=== PATIENT | female | born 1960 | race African-American/Black ===

== ENCOUNTER 2017-12-11 15:44 | Emergency (ER) | payer MEDICAID, OTHER ==
[~2017-12-11] VITALS: Ht 167.6 cm; Wt 133.8 kg
[~2017-12-11 15:44] MED LIST: ALBUTEROL2.5 MG/3 M HHN; ASPIRIN325 MG PO; ATORVASTATIN CA20 MG PO; BENICAR20 MG PO; KOMBIGLYZE XR1 EACH PO; VICODIN 5-5001 EACH PO
[2017-12-11 15:53] VITALS: BP 159/99
[2017-12-11] MEDS ORDERED: DIOVAN80 MG ORAL ×2 (15:59→16:18)
[2017-12-11] MEDS ORDERED: KOMBIGLYZE XR1 EACH PO ×2 (15:59→16:18)
[2017-12-11] MEDS ORDERED: AMLODIPINE BESYL5 MG ORAL ×2 (15:59→16:18)
[2017-12-11] MEDS ORDERED: MONTELUKAST SOD10 MG ORAL (15:59)
[2017-12-11] MEDS ORDERED: CYCLOBENZAPRINE10 MG ORAL (15:59)
[2017-12-11] MEDS ORDERED: TYLENOL325 MG ORAL (16:18)
[2017-12-11] MEDS ORDERED: ASPIRIN EC325 MG ORAL (16:18)
--- NOTE | 2017-12-11 16:18 | Emergency Room Report ---
History of Present Illness General Chief Complaint: General Complaint Present Illness HPI 57 yo female patient presents to ER requesting medication refill. Patient reports hx of HTN and DM. Reports needs refill of medication for DM and HTN. Reports no longer seeing current primary care provider. Denies fever, chest pain, SOB. Denies acute symptoms currently. Reports hx of arthritis; requesting medication for pain. Allergies: Coded Allergies: PENICILLINS (Verified Allergy, Itching, 10/18/12) Patient History Past Medical History: see triage record Reviewed Nursing Documentation: PMH: Agreed, PSxH: Agreed Nursing Documentation-PMH Hx Hypertension: Yes Hx Asthma: Yes Hx Diabetes: Yes Review of Systems All Other Systems: negative except mentioned in HPI Physical Exam Vital Signs Date Time Temp Pulse Resp B/P (MAP) Pulse Ox O2 Delivery O2 Flow Rate FiO2 12/11/17 15:53 98.0 99 18 159/99 97 Room Air 98.1 Sp02 EP Interpretation: reviewed, normal General Appearance: well appearing, no apparent distress, alert, GCS 15, non- toxic Head: normocephalic, atraumatic Eyes: bilateral eye normal inspection, bilateral eye PERRL ENT: hearing grossly normal, normal pharynx, no angioedema, normal voice, uvula midline, moist mucus membranes Neck: full range of motion Respiratory: lungs clear, normal breath sounds, no rhonchi, no respiratory distress, no accessory muscle use, no wheezing, speaking full sentences Cardiovascular #1: regular rate, rhythm, no edema Gastrointestinal: non tender, soft, no mass, non-distended, no guarding, no rebound Genitourinary: no CVA tenderness Musculoskeletal: back normal, digits/nails normal, gait/station normal, normal range of motion, non-tender Neurologic: alert, oriented x3, responsive, motor strength/tone normal, sensory intact Psychiatric: mood/affect normal Skin: no rash Lymphatic: no adenopathy Medical Decision Making PA Attestation Dr. Bourgeois is my supervising Physician whom patient management has been discussed with. Diagnostic Impression: Primary Impression: Encounter for medication refill Additional Impression: Hx of chronic arthritis ER Course Pt. presents to the ED requesting medication refill. Multiple differentials considered. Vital signs: are WNL, pt. is afebrile ORDERS: none required at this time, the diagnosis is clinical ER COURSE: Will provide patient with 2 weeks of prescriptions. Informed patient ER cannot refill prescriptions again in the future. Need to followup with primary care provider for further medication refills and management of disease. Patient reports understanding and agreement to treatment plan. Patient reports will schedule an appointment with new physician and establish care after discharge from hospital. States will followup with primary care provider in less than 2 weeks. DISCHARGE: At this time pt is stable for d/c to home. Patient is resting comfortably, in no acute distress, nontoxic appearing, talking without difficulty. Patient to take medications as instructed Will provide with patient care instructions and any necessary prescriptions. Care plan and follow-up instructions provided. Patient instructed to follow-up with primary care provider in 3 - 5 days. Tylenol for arthritis pain, followup with PCP for treatment and referral as needed. Patient questions asked and answered. Patient reports understanding and agreement to treatment plan. ER precautions given. Patient instructed to return to ER immediately for any new or worsening of symptoms including but not limited to increasing SOB, persistent fever. Last Vital Signs Date Time Temp Pulse Resp B/P (MAP) Pulse Ox O2 Delivery O2 Flow Rate FiO2 12/11/17 15:53 98.0 99 18 159/99 97 Room Air 98.1 Disposition: HOME, SELF-CARE Condition: Stable Scripts Acetaminophen (Tylenol) 325 Mg Tablet 325 MG ORAL Q6H Y for Prn Pain/Headache/Temp > 101, #30 TAB 0 Refills Prov: Rusty Montez 12/11/17 Valsartan (DIOVAN) 80 Mg Tab 80 MG ORAL DAILY for 14 Days, #14 TAB Prov: Rusty Montez 12/11/17 Aspirin* (ASPIRIN EC*) 325 Mg Tablet.dr 325 MG ORAL DAILY for 14 Days, #14 TAB Prov: Rusty Montez 12/11/17 Amlodipine Besylate* (AMLODIPINE BESYLATE*) 5 Mg Tablet 5 MG ORAL DAILY for 14 Days, #14 TAB Prov: Rusty Montez 12/11/17 Saxagliptin Hcl/Metformin Hcl (KOMBIGLYZE XR 2.5-1,000 MG TAB) 1 Each Tbmp.24hr 1 EACH PO DAILY for 14 Days, #14 TAB Prov: Rusty Montez 12/11/17 Patient Instructions: Arthritis, [id number], Diabetes and Exercise, Hypertension, [id number] Additional Instructions: Followup with primary care provider in 3 -5 days. ER will not able to refill prescriptions again, need to followup with primary care provider for medication refill so that they can monitor you and medication effectiveness. Take medications as directed. Patient questions asked and answered. ER precautions given, patient instructed to return to ER immediately for any new or worsening of symptoms, including but not limited to chest pain, SOB, abdominal pain, fever. Rusty Montez Dec 11, 2017 16:18
[2017-12-11 16:30] VITALS: BP 161/95
== END 2017-12-11 16:30 | disposition home or self-care (01) ==
LOC: EMR 16:17
DX: Z76.0 Encounter for issue of repeat prescription (principal); I10 Essential (primary) hypertension; J45.909 Unspecified asthma, uncomplicated; E11.9 Type 2 diabetes mellitus without complications; Z88.0 Allergy status to penicillin
CPT/HCPCS: 99284

== ENCOUNTER 2018-01-17 16:26 | Emergency (ER) | payer MEDICAID, OTHER ==
[~2018-01-17] VITALS: Ht 167.6 cm; Wt 86.6 kg
[~2018-01-17 16:26] MED LIST changes: +AMLODIPINE BESYL5 MG ORAL; +ASPIRIN EC325 MG ORAL; +CYCLOBENZAPRINE10 MG ORAL; +DIOVAN80 MG ORAL; +MONTELUKAST SOD10 MG ORAL; +TYLENOL325 MG ORAL
--- NOTE | 2018-01-17 16:50 | Emergency Room Report ---
History of Present Illness General Chief Complaint: Medication Refill Present Illness HPI 57-year-old female patient presents ER requesting medication refill for diabetes and hypertension medications. Patient denies acute symptoms in the ER currently. Patient is presenting seen in the ER requesting medication refill. Patient reports she has an appointment with her doctor on 2017. Patient reports she'll follow up at that time for further medication refill but needs medication at this time. Patient Denies fever, chest pain, shortness of breath, abdominal pain, nausea, vomiting, diarrhea, headache, vision changes. Reports she took her blood pressure medication today. Allergies: Coded Allergies: PENICILLINS (Verified Allergy, Itching, 10/18/12) Patient History Past Medical History: see triage record Reviewed Nursing Documentation: PMH: Agreed; PSxH: Agreed Nursing Documentation-PMH Hx Hypertension: Yes Hx Asthma: Yes Hx Diabetes: Yes Review of Systems All Other Systems: negative except mentioned in HPI Physical Exam Vital Signs Date Time Temp Pulse Resp B/P (MAP) Pulse Ox O2 Delivery O2 Flow Rate FiO2 01/17/18 16:38 98.3 77 16 162/99 98 Room Air 98.2 Sp02 EP Interpretation: reviewed, normal General Appearance: well appearing, no apparent distress, alert, GCS 15, non- toxic Head: normocephalic, atraumatic Eyes: bilateral eye normal inspection, bilateral eye PERRL Neck: full range of motion Respiratory: lungs clear, normal breath sounds, no rhonchi, no respiratory distress, no accessory muscle use, no wheezing, speaking full sentences Cardiovascular #1: regular rate, rhythm, no edema Musculoskeletal: back normal, digits/nails normal, gait/station normal, normal range of motion, non-tender Neurologic: alert, oriented x3, responsive, motor strength/tone normal, sensory intact Psychiatric: mood/affect normal Medical Decision Making PA Attestation Dr. Perla is my supervising Physician whom patient management has been discussed with. Diagnostic Impression: Primary Impression: Encounter for medication refill Additional Impression: Elevated blood pressure reading ER Course Pt. presents to the ED requesting prescription refill. Multiple differentials were considered. Vital signs: are WNL, pt. is afebrile. BP slightly elevated, consistent with remotes visits, patient denies acute complaints of chest pain, shortness, vision changes in ER. Patient does not require acute intervention at ER. Instructed to follow-up with primary care provider for further evaluation and treatment and discuss need for change of dosage of medication. patient reports understanding treatment plan. ORDERS: PE benign. denies acute complaints in ER today. Informed patient would provide refill of medication. Patient started to follow up at scheduled appointment. Discuss medication and management of chronic diseases at that time. Supplied patient with 30 day supply of medication to last her until her appointment with her primary care provider. Informed patient ER cannot provide refills in the future; followup, management and prescription of long-term medications must be performed by primary care provider. DISCHARGE: Rx provided for Aspirin Rx provided for Tylenol Rx provided for Valsartan Rx provided for Saxagliptin/Metformin Rx provided for Amlodipine At this time pt is stable for d/c to home. Patient is resting comfortably, in no acute distress, nontoxic appearing, talking without difficulty, smiling. Patient to take medications as instructed Will provide with patient care instructions and any necessary prescriptions. Care plan and follow-up instructions provided. Patient instructed to follow-up with primary care provider at scheduled appointment. Patient questions asked and answered. Patient reports understanding and agreement to treatment plan. ER precautions given. Patient instructed to return to ER immediately for any new or worsening of symptoms including but not limited to increasing SOB, persistent fever. Last Vital Signs Date Time Temp Pulse Resp B/P (MAP) Pulse Ox O2 Delivery O2 Flow Rate FiO2 01/17/18 16:38 98.3 77 16 162/99 98 Room Air 98.2 Disposition: HOME, SELF-CARE Condition: Stable Scripts Acetaminophen* (ACETAMINOPHEN 325MG TABLET*) 325 Mg Tablet 325 MG ORAL Q6H PRN for For Pain, #30 TAB Prov: Rusty MontezAJosemanuel 01/17/18 Amlodipine Besylate* (AMLODIPINE BESYLATE*) 5 Mg Tablet 5 MG ORAL DAILY, #30 TAB Prov: Rusty Montez.A. 01/17/18 Aspirin* (ASPIRIN*) 325 Mg Tablet 325 MG ORAL DAILY, #30 TAB Prov: Rusty Montez.A. 01/17/18 Saxagliptin Hcl/Metformin Hcl (KOMBIGLYZE XR 2.5-1,000 MG TAB) 1 Each Tbmp.24hr 1 EACH PO DAILY, #30 TAB Prov: Rusty MontezA. 01/17/18 Valsartan (Diovan) 80 Mg Tablet 1 TAB ORAL DAILY, #30 TAB Prov: Rusty Montez 01/17/18 Patient Instructions: Medicine Refill at the Emergency Department Additional Instructions: Followup with primary care provider in 3 -5 days. Take medications as directed. Patient questions asked and answered. ER precautions given, patient instructed to return to ER immediately for any new or worsening of symptoms. Rusty Montez Jan 17, 2018 16:50
[2018-01-17 16:54] VITALS: BP 162/99
[2018-01-17] MEDS ORDERED: ACETAMINOPHEN325 M1 ORAL (17:08)
[2018-01-17] MEDS ORDERED: KOMBIGLYZE XR1 EACH PO (17:08)
[2018-01-17] MEDS ORDERED: ASPIRIN325 MG ORAL (17:08)
[2018-01-17] MEDS ORDERED: AMLODIPINE BESYL5 MG ORAL (17:08)
[2018-01-17] MEDS ORDERED: DIOVAN HCT 80MG1 TAB ORAL (17:08)
[2018-01-17 17:16] VITALS: BP 162/99
== END 2018-01-17 17:00 | disposition home or self-care (01) ==
LOC: EMR 16:55
DX: Z76.0 Encounter for issue of repeat prescription (principal); I10 Essential (primary) hypertension; J45.909 Unspecified asthma, uncomplicated; E11.9 Type 2 diabetes mellitus without complications; Z88.0 Allergy status to penicillin
CPT/HCPCS: 99284

== ENCOUNTER → 2018-05-12 | Emergency (ER) | payer OTHER, MEDICAID ==
[~2018-05-12] VITALS: Ht 165.1 cm; Wt 88.5 kg
[~2018-05-12] MED LIST changes: +ACETAMINOPHEN325 M1 ORAL; +ASPIRIN325 MG ORAL; +DIOVAN HCT 80MG1 TAB ORAL; +HYDROXYZINE HCL10 M1 PO; +PERMETHRIN60 GM TOPIC
[2018-05-12 11:23] VITALS: BP 169/109
--- NOTE | 2018-05-15 08:14 | Emergency Room Report ---
History of Present Illness General Chief Complaint: Lower Extremity Injury Source: Patient Present Illness HPI Patient's a 58-year-old female presented after increased itchy rash. Patient had the rash predominantly to her belt line area. Patient denied any recent trauma. She had prior history of ankle injury which had been painful for approximately 3 months. She denies any numbness or weakness weakness to her extremities. She had associated contact with similar symptoms and itchiness.. Allergies: Coded Allergies: PENICILLINS (Verified Allergy, Unknown, Itching, 05/12/18) Patient History Past Medical History: see triage record Now: No Reviewed Nursing Documentation: PMH: Agreed; PSxH: Agreed Nursing Documentation-PMH Hx Hypertension: Yes Hx Asthma: Yes Hx Diabetes: Yes Review of Systems All Other Systems: negative except mentioned in HPI Physical Exam Vital Signs Date Time Temp Pulse Resp B/P (MAP) Pulse Ox O2 Delivery O2 Flow Rate FiO2 05/12/18 11:23 97.5 111 15 169/109 98 Room Air 97.5 General Appearance: well appearing, no apparent distress, alert, GCS 15 Head: normocephalic, atraumatic ENT: hearing grossly normal, normal voice Neck: full range of motion, supple Respiratory: no respiratory distress, speaking full sentences Cardiovascular #1: normal inspection, normal peripheral pulses, regular rate, rhythm Gastrointestinal: normal inspection, non tender Musculoskeletal: decreased range of mation Neurologic: normal inspection, alert, oriented x3, responsive, normal gait Psychiatric: mood/affect normal Skin: other - Mildly excoriated rash\ Medical Decision Making Diagnostic Impression: Primary Impression: Rash Additional Impression: Chronic pain ER Course Patient presented for skin rash. Differential diagnosis included was not limited to Natarajan-Dustin syndrome, urticaria, erythema multiforme, contact dermatitis. Patient's benign exam and does not appear to require any further imaging or laboratory testing at this time. The patient given prescription for Elimite cream for possible scabies. The patient's ankle pain appears to be chronic and does not appear to require imaging at this time. Patient is advised follow-up with primary care physician for orthopedic referral. Patient is advised to use NSAIDs and to keep her leg elevated as much as possible for pain. Last Vital Signs Date Time Temp Pulse Resp B/P (MAP) Pulse Ox O2 Delivery O2 Flow Rate FiO2 05/12/18 12:53 97.5 15 159/96 98 Room Air 97.5 05/12/18 11:23 111 Status: improved Disposition: HOME, SELF-CARE Condition: Stable Scripts Hydroxyzine Hcl (HYDROXYZINE HCL) 10 Mg Tablet 10 MG PO Q6HR, #20 TAB Prov: Beny Gross MD 05/12/18 Permethrin* (ELIMITE*) 60 Gm Cream..g. 1 APPLIC TOPIC ONCE, #60 GM 0 Refills Apply cream from head to toe; leave on for 8-14 hours before washing off with water; may reapply in 1 week if live mites appear. Prov: Beny Gross MD 05/12/18 Referrals: NON PHYSICIAN (PCP) Patient Instructions: Rash, Chronic Pain Beny Gross MD May 15, 2018 08:14
== END | disposition home or self-care (01) ==
LOC: EMR 12:40
DX: R21 Rash and other nonspecific skin eruption (principal); G89.29 Other chronic pain; E11.9 Type 2 diabetes mellitus without complications; J45.909 Unspecified asthma, uncomplicated; I10 Essential (primary) hypertension; Z88.0 Allergy status to penicillin
CPT/HCPCS: 99283

== ENCOUNTER 2018-11-13 11:17 | Emergency (ER) | payer OTHER, MEDICAID ==
[~2018-11-13] VITALS: Ht 167.6 cm; Wt 86.6 kg
--- NOTE | 2018-11-13 11:25 | NUR ---
ED Nurse Note: AMBULATED IN TO ER DUE TO HIGH BS X3 DAYS. BS AT HOME WAS 466. GLIPIZIDE 10MG DAILY.
[2018-11-13 11:30] VITALS: BP 132/89
[2018-11-13 12:06] LABS: APPEARANCE,URINE CLEAR; BILIRUBIN, URINE NEGATIVE (NEGATIVE); COLOR,URINE PALE YELLOW; GLUCOSE, URINE (UA) 4+ (NEGATIVE); KETONES,URINE NEGATIVE (NEGATIVE); LEUKOCYTE ESTERASE ,URINE NEGATIVE (NEGATIVE); NITRITE,URINE NEGATIVE (NEGATIVE); PH,URINE 5 (4.5-8.0); PROTEIN,URINE NEGATIVE (NEGATIVE); UROBILINOGEN,URINE NORMAL MG/DL (0.0-1.0)
[2018-11-13 12:12] LABS: BASOPHILS % (AUTO) 2.3 % (0.0-2.0); EOSINOPHILS % (AUTO) 3.7 % (0.0-3.0); HEMATOCRIT 39.9 % (37.0-47.0); HEMOGLOBIN 13.5 G/DL (12.0-16.0); LYMPHOCYTES % (AUTO) 24.8 % (20.0-45.0); MEAN CORPUSCULAR VOLUME 96 FL (80-99); MONOCYTES % (AUTO) 10.9 % (1.0-10.0); NEUTROPHILS % (AUTO) 58.3 % (45.0-75.0); PLATELET COUNT 281 K/UL (150-450); RED BLOOD COUNT 4.15 M/UL (4.20-5.40); RED CELL DISTRIBUTION WIDTH 12.2 % (11.6-14.8); WHITE BLOOD COUNT 5.6 K/UL (4.8-10.8)
[2018-11-13 12:29] LABS: ALANINE AMINOTRANSFERASE 18 U/L (12-78); ALBUMIN 3.8 G/DL (3.4-5.0); ALBUMIN/GLOBULIN RATIO 0.9 (1.0-2.7); ALKALINE PHOSPHATASE 111 U/L (46-116); ANION GAP 11 mmol/L (5-15); ASPARTATE AMINO TRANSFERASE 22 U/L (15-37); BILIRUBIN,TOTAL 0.4 MG/DL (0.2-1.0); BLOOD UREA NITROGEN 21 mg/dL (7-18); CALCIUM 9.4 MG/DL (8.5-10.1); CARBON DIOXIDE 24 MMOL/L (21-32); CHLORIDE 98 MMOL/L (98-107); CREATININE 1.3 MG/DL (0.55-1.30); POTASSIUM 4.8 MMOL/L (3.5-5.1); SODIUM 133 MMOL/L (136-145)
[2018-11-13] MEDS ORDERED: Insulin Human Regular 100units/ml 3ml IV ONE (12:45)
[2018-11-13 13:38] VITALS: BP 147/90
--- NOTE | 2018-11-13 13:38 | NUR ---
ER Nurse Note: A/OX4. PT IS CLEARED BY DR.K. CONNELL INSTRUCTION AND PRESCRIPTIONS GIVEN, PT VERBALIZED UNDERSTSANDING. IV/ID WRISTBAND REMOVED. ALL BELONGINGS TAKEN BY PT. DENIES ANY PAIN AT THIS TIME. PT AMBULATED OUT OF ER WITH STEADY GAIT.
--- NOTE | 2018-11-14 07:02 | Emergency Room Report ---
History of Present Illness General Chief Complaint: General Complaint Source: Patient Present Illness HPI 58-year-old female presents ED for evaluation. Patient states that her blood sugars have been high for the last 3 days. Accu-Chek critically high in the ER. States she is a diabetic and takes metformin and glipizide. States she's been compliant with her medications. Denies nausea or vomiting. Denies fevers or chills. Denies any abdominal pain. States she feels fine otherwise. No other aggravating relieving factors. Denies any other associated symptoms Allergies: Coded Allergies: PENICILLINS (Verified Allergy, Unknown, Itching, 05/12/18) Patient History Past Medical History: DM, HTN, asthma Past Surgical History: none Pertinent Family History: none Social History: Denies: smoking, alcohol use, drug use Last Menstrual Period: menopause Now: No Immunizations: UTD Reviewed Nursing Documentation: PMH: Agreed; PSxH: Agreed Nursing Documentation-PMH Past Medical History: No History, Except For Hx Hypertension: Yes Hx Asthma: Yes Hx Diabetes: Yes Review of Systems All Other Systems: negative except mentioned in HPI Physical Exam Vital Signs Date Time Temp Pulse Resp B/P (MAP) Pulse Ox O2 Delivery O2 Flow Rate FiO2 11/13/18 11:26 97.9 77 16 132/89 94 Room Air Sp02 EP Interpretation: reviewed, normal General Appearance: no apparent distress, alert, GCS 15, non-toxic Head: normocephalic, atraumatic Eyes: bilateral eye normal inspection, bilateral eye PERRL ENT: hearing grossly normal, normal pharynx, no angioedema, normal voice Neck: full range of motion, supple/symm/no masses Respiratory: chest non-tender, lungs clear, normal breath sounds, speaking full sentences Cardiovascular #1: regular rate, rhythm, no edema Cardiovascular #2: 2+ carotid (R), 2+ carotid (L), 2+ radial (R), 2+ radial (L) , 2+ dorsalis pedis (R), 2+ dorsalis pedis (L) Gastrointestinal: normal bowel sounds, non tender, soft, non-distended, no guarding, no rebound Rectal: deferred Genitourinary: normal inspection, no CVA tenderness Musculoskeletal: back normal, gait/station normal, normal range of motion, non- tender Neurologic: alert, oriented x3, responsive, motor strength/tone normal, sensory intact, speech normal Psychiatric: judgement/insight normal, memory normal, mood/affect normal, no suicidal/homicidal ideation Reflexes: 3+ bicep (R), 3+ bicep (L), 3+ tricep (R), 3+ tricep (L), 3+ knee (R) , 3+ knee (L) Skin: normal color, no rash, warm/dry, well hydrated Lymphatic: no adenopathy Medical Decision Making Diagnostic Impression: Primary Impression: Hyperglycemia ER Course Hospital Course 58-year-old female presenting to ED with elevated BS. Differential diagnoses include: ETOH/drug ingestion, sepsis, DKA Clinical course Patient placed on stretcher. On rn cardiac cath. After initial history and physical I ordered labs, IV fluids Labs-glucose 579, no anion gap, bicarbonate normal, electrolytes ok. no leukocytosis. acetone negative Discussed findings with patient. Patient given IV fluids and insulin. On reassessment Accu-Chek improved. Reassurance given to patient. Patient later admits that she has been eating a lot of sweets recently which is likely spiking her sugars. I discussed with the patient's of importance with glycemic control even if she is taking her medications. Safe for discharge close outpatient follow-up. States she has a PMD i. I feel this is a highly complex case requiring extensive working including EKG/Rhythm strip, Xray/CT/US, Blood/urine lab work, repeat exams while in ED, and administration of strong opiates/narcotics for pain control, admission to hospital or close patient follow up. diagnosis - hyperglycemia Stable and discharged to home. Followup with PMD. Return to ED if symptoms recur or worsen Labs Test 11/13/18 11:45 White Blood Count 5.6 K/UL (4.8-10.8) Red Blood Count 4.15 M/UL (4.20-5.40) Hemoglobin 13.5 G/DL (12.0-16.0) Hematocrit 39.9 % (37.0-47.0) Mean Corpuscular Volume 96 FL (80-99) Mean Corpuscular Hemoglobin 32.6 PG (27.0-31.0) Mean Corpuscular Hemoglobin Concent 33.9 G/DL (32.0-36.0) Red Cell Distribution Width 12.2 % (11.6-14.8) Platelet Count 281 K/UL (150-450) Mean Platelet Volume 8.5 FL (6.5-10.1) Neutrophils (%) (Auto) 58.3 % (45.0-75.0) Lymphocytes (%) (Auto) 24.8 % (20.0-45.0) Monocytes (%) (Auto) 10.9 % (1.0-10.0) Eosinophils (%) (Auto) 3.7 % (0.0-3.0) Basophils (%) (Auto) 2.3 % (0.0-2.0) Urine Color Pale yellow Urine Appearance Clear Urine pH 5 (4.5-8.0) Urine Specific Purdy 1.010 (1.005-1.035) Urine Protein Negative (NEGATIVE) Urine Glucose (UA) 4+ (NEGATIVE) Urine Ketones Negative (NEGATIVE) Urine Blood Negative (NEGATIVE) Urine Nitrite Negative (NEGATIVE) Urine Bilirubin Negative (NEGATIVE) Urine Urobilinogen Normal MG/DL (0.0-1.0) Urine Leukocyte Esterase Negative (NEGATIVE) Sodium Level 133 MMOL/L (136-145) Potassium Level 4.8 MMOL/L (3.5-5.1) Chloride Level 98 MMOL/L (98-107) Carbon Dioxide Level 24 MMOL/L (21-32) Anion Gap 11 mmol/L (5-15) Blood Urea Nitrogen 21 mg/dL (7-18) Creatinine 1.3 MG/DL (0.55-1.30) Estimat Glomerular Filtration Rate 51.0 mL/min (>60) Glucose Level 579 MG/DL (74-106) Calcium Level 9.4 MG/DL (8.5-10.1) Magnesium Level 1.6 MG/DL (1.8-2.4) Total Bilirubin 0.4 MG/DL (0.2-1.0) Aspartate Amino Transf (AST/SGOT) 22 U/L (15-37) Alanine Aminotransferase (ALT/SGPT) 18 U/L (12-78) Alkaline Phosphatase 111 U/L (46-116) Total Protein 8.1 G/DL (6.4-8.2) Albumin 3.8 G/DL (3.4-5.0) Globulin 4.3 g/dL Albumin/Globulin Ratio 0.9 (1.0-2.7) Acetone Level Negative (NEGATIVE) Last Vital Signs Date Time Temp Pulse Resp B/P (MAP) Pulse Ox O2 Delivery O2 Flow Rate FiO2 11/13/18 13:38 97.4 76 16 147/90 96 Room Air Status: improved Disposition: HOME, SELF-CARE Condition: Stable Referrals: [facility],REFERRING NON PHYSICIAN (PCP) Patient Instructions: Hyperglycemia, [id number] Hay Haq MD Nov 14, 2018 07:02
== END 2018-11-13 13:39 | disposition home or self-care (01) ==
LOC: EMR 11:51
DX: E11.65 Type 2 diabetes mellitus with hyperglycemia (principal); I10 Essential (primary) hypertension; J45.909 Unspecified asthma, uncomplicated
CPT/HCPCS: 36415; 80053; 81003; 82009; 82962; 83735; 85025; 96361; 96374; 99284; J1815

== ENCOUNTER 2020-04-06 16:12 | Inpatient (IN) | payer OTHER, MEDICAID ==
[~2020-04-06] VITALS: Ht 167.6 cm; Wt 86.2 kg
[2020-04-06 16:45] VITALS: BP 139/91
[2020-04-06] MEDS ORDERED: Mylanta II UD 30ml ORAL ONE (17:00)
[2020-04-06] MEDS ORDERED: Lidocaine 2% Visc 15ml soln ORAL ONE (17:00)
[2020-04-06] MEDS ORDERED: ATORVASTATIN CA40 MG ORAL (17:18)
[2020-04-06] MEDS ORDERED: AMLODIPINE BESYL5 MG ORAL (17:20)
[2020-04-06] MEDS ORDERED: HUMALOG KW200 UNIT/1 SQ (17:20)
[2020-04-06 17:27] LABS: EOSINOPHILS % (AUTO) 0.2 % (0.0-3.0); HEMATOCRIT 40.3 % (37.0-47.0); HEMOGLOBIN 13.2 G/DL (12.0-16.0); LYMPHOCYTES % (AUTO) 20.2 % (20.0-45.0); MEAN CORPUSCULAR VOLUME 100 FL (80-99); MONOCYTES % (AUTO) 7.2 % (1.0-10.0); NEUTROPHILS % (AUTO) 70.3 % (45.0-75.0); PLATELET COUNT 261 K/UL (150-450); RED BLOOD COUNT 4.03 M/UL (4.20-5.40); RED CELL DISTRIBUTION WIDTH 11.9 % (11.6-14.8); WHITE BLOOD COUNT 5.1 K/UL (4.8-10.8)
[2020-04-06 17:29] LABS: APPEARANCE,URINE CLEAR; BILIRUBIN, URINE NEGATIVE (NEGATIVE); COLOR,URINE PALE YELLOW; GLUCOSE, URINE (UA) 4+ (NEGATIVE); KETONES,URINE 3+ (NEGATIVE); LEUKOCYTE ESTERASE ,URINE NEGATIVE (NEGATIVE); NITRITE,URINE NEGATIVE (NEGATIVE); PH,URINE 5 (4.5-8.0); PROTEIN,URINE 1+ (NEGATIVE); UROBILINOGEN,URINE NORMAL MG/DL (0.0-1.0)
[2020-04-06 17:40] LABS: ANION GAP 17 mmol/L (5-15); BLOOD UREA NITROGEN 29 mg/dL (7-18); CALCIUM 9.1 MG/DL (8.5-10.1); CARBON DIOXIDE 20 MMOL/L (21-32); CHLORIDE 90 MMOL/L (98-107); CREATININE 2.1 MG/DL (0.55-1.30); POTASSIUM 4.9 MMOL/L (3.5-5.1); SODIUM 127 MMOL/L (136-145)
[2020-04-06 17:43] LABS: ALANINE AMINOTRANSFERASE 17 U/L (12-78); ALBUMIN 4.2 G/DL (3.4-5.0); ALBUMIN/GLOBULIN RATIO 1.1 (1.0-2.7); ALKALINE PHOSPHATASE 128 U/L (46-116); ASPARTATE AMINO TRANSFERASE 13 U/L (15-37); BILIRUBIN,TOTAL 0.6 MG/DL (0.2-1.0)
[2020-04-06 18:31] VITALS: BP 142/87
[2020-04-06] MEDS ORDERED: Insulin Human Regular 100units/ml 3ml SUBQ ONE (19:30)
[2020-04-06 20:30] VITALS: BP 142/87
[2020-04-06] MEDS ORDERED: Albuterol/Ipratropium 3ml neb HHN PRN (21:15)
[2020-04-06] MEDS ORDERED: Nitroglycerin Subl 0.4mg tab SL PRN (21:15)
[2020-04-06] MEDS ORDERED: Miralax 17gm pkt ORAL PRN (21:15)
--- NOTE | 2020-04-06 22:22 | Emergency Room Report ---
History of Present Illness General Chief Complaint: Chest Pain Source: Patient Present Illness HPI This patient states that she feels "terrible" overall. Complains of chest pain. She states she is very weak. She has had cough intermittently. She is fatigued. She denies fever or chills. She denies nausea or vomiting. She denies abdominal pain. She denies dysuria or hematuria. She has no other complaints. 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 Patient History Past Medical History: see triage record, DM, HTN, asthma Social History: Denies: smoking, alcohol use, drug use Reviewed Nursing Documentation: PMH: Agreed; PSxH: Agreed Nursing Documentation-PMH Hx Hypertension: Yes Hx Asthma: Yes Hx Diabetes: Yes Review of Systems All Other Systems: negative except mentioned in HPI Physical Exam Vital Signs Date Time Temp Pulse Resp B/P (MAP) Pulse Ox O2 Delivery O2 Flow Rate FiO2 04/06/20 16:38 98.4 87 18 139/91 (107) 100 Room Air Sp02 EP Interpretation: reviewed, normal General Appearance: no apparent distress, alert, GCS 15, non-toxic Head: normocephalic, atraumatic Eyes: bilateral eye normal inspection, bilateral eye PERRL ENT: hearing grossly normal, normal pharynx, no angioedema, normal voice Neck: full range of motion, supple/symm/no masses Respiratory: chest non-tender, lungs clear, normal breath sounds, no respiratory distress, no retraction, no accessory muscle use, speaking full sentences Cardiovascular #1: regular rate, rhythm, no edema Gastrointestinal: normal bowel sounds, non tender, soft, non-distended, no guarding, no rebound Rectal: deferred Musculoskeletal: back normal, normal range of motion, gait/station normal, non- tender Neurologic: alert, motor strength/tone normal, oriented x3, sensory intact, responsive, speech normal Psychiatric: judgement/insight normal, memory normal, mood/affect normal, no suicidal/homicidal ideation Skin: no rash, normal color Medical Decision Making Diagnostic Impression: Primary Impression: Hyperosmolar syndrome Additional Impressions: Hyperglycemia Uncontrolled diabetes mellitus DANAE (acute kidney injury) ER Course This patient was found to have a blood sugar over 800. I suspect this is related to medication noncompliance and lack of sophistication. The patient states she takes 5 units of insulin. She does not know what type of insulin. She remained stable in the emergency department. She is given aggressive IV fluid resuscitation and insulin subcutaneous. She had improvement in her blood sugar into the mid 400s. She is admitted for further monitoring, education and control of her diabetes. This patient is critically ill. This patient required complex medical decision- making, aggressive intervention, extensive laboratory workup and monitoring. Critical care time: 40 minutes. Laboratory Tests Test 04/06/20 17:00 White Blood Count 5.1 K/UL (4.8-10.8) Red Blood Count 4.03 M/UL (4.20-5.40) L Hemoglobin 13.2 G/DL (12.0-16.0) Hematocrit 40.3 % (37.0-47.0) Mean Corpuscular Volume 100 FL (80-99) H Mean Corpuscular Hemoglobin 32.7 PG (27.0-31.0) H Mean Corpuscular Hemoglobin Concent 32.7 G/DL (32.0-36.0) Red Cell Distribution Width 11.9 % (11.6-14.8) Platelet Count 261 K/UL (150-450) Mean Platelet Volume 9.9 FL (6.5-10.1) Neutrophils (%) (Auto) 70.3 % (45.0-75.0) Lymphocytes (%) (Auto) 20.2 % (20.0-45.0) Monocytes (%) (Auto) 7.2 % (1.0-10.0) Eosinophils (%) (Auto) 0.2 % (0.0-3.0) Basophils (%) (Auto) 2.0 % (0.0-2.0) Urine Color Pale yellow Urine Appearance Clear Urine pH 5 (4.5-8.0) Urine Specific [place] 1.010 (1.005-1.035) Urine Protein 1+ (NEGATIVE) H Urine Glucose (UA) 4+ (NEGATIVE) H Urine Ketones 3+ (NEGATIVE) H Urine Blood Negative (NEGATIVE) Urine Nitrite Negative (NEGATIVE) Urine Bilirubin Negative (NEGATIVE) Urine Urobilinogen Normal MG/DL (0.0-1.0) Urine Leukocyte Esterase Negative (NEGATIVE) Urine RBC 0-2 /HPF (0 - 2) Urine WBC 0-2 /HPF (0 - 2) Urine Squamous Epithelial Cells Few /LPF (NONE/OCC) Urine Bacteria Few /HPF (NONE) Sodium Level 127 MMOL/L (136-145) L Potassium Level 4.9 MMOL/L (3.5-5.1) Chloride Level 90 MMOL/L (98-107) L Carbon Dioxide Level 20 MMOL/L (21-32) L Anion Gap 17 mmol/L (5-15) H Blood Urea Nitrogen 29 mg/dL (7-18) H Creatinine 2.1 MG/DL (0.55-1.30) H Estimated Glomerular Filtration Rate 29.2 mL/min (>60) Glucose Level 860 MG/DL (74-106) *H Calcium Level 9.1 MG/DL (8.5-10.1) Total Bilirubin 0.6 MG/DL (0.2-1.0) Aspartate Amino Transferase (AST) 13 U/L (15-37) L Alanine Aminotransferase (ALT) 17 U/L (12-78) Alkaline Phosphatase 128 U/L (46-116) H Troponin I 0.000 ng/mL (0.000-0.056) Total Protein 8.0 G/DL (6.4-8.2) Albumin 4.2 G/DL (3.4-5.0) Globulin 3.8 g/dL Albumin/Globulin Ratio 1.1 (1.0-2.7) Urine Opiates Screen Negative (NEGATIVE) Urine Barbiturates Screen Negative (NEGATIVE) Phencyclidine (PCP) Screen Negative (NEGATIVE) Urine Amphetamines Screen Negative (NEGATIVE) Urine Benzodiazepines Screen Negative (NEGATIVE) Urine Cocaine Screen Negative (NEGATIVE) Urine Marijuana (THC) Screen Positive (NEGATIVE) H Acetone Level Positive-small (NEGATIVE) EKG Diagnostic Results Rate: normal Rhythm: NSR ST Segments: no acute changes Rhythm Strip Diag. Results EP Interpretation: yes Rate: 80's Rhythm: NSR, no PVC's, no ectopy Chest X-Ray Diagnostic Results Chest X-Ray Diagnostic Results : Chest X-Ray Ordered: Yes # of Views/Limited/Complete: 1 View Indication: Chest Pain EP Interpretation: Yes Interpretation: no consolidation, no effusion, no pneumothorax, no acute cardiopulmonary disease Impression: No acute disease Electronically Signed by: Jaqui Moyer DO Last Vital Signs Date Time Temp Pulse Resp B/P (MAP) Pulse Ox O2 Delivery O2 Flow Rate FiO2 04/06/20 18:31 98.3 86 17 142/87 98 Room Air Disposition: ADMITTED INPATIENT Condition: Serious Referrals: NON PHYSICIAN (PCP) Jaqui Moyer DO Apr 06, 2020 22:22
[2020-04-07] VITALS: BP 113/62
[2020-04-07 04:00] VITALS: BP 132/68
[2020-04-07 05:12] LABS: BASOPHILS % (AUTO) 2.4 % (0.0-2.0); EOSINOPHILS % (AUTO) 1.3 % (0.0-3.0); HEMATOCRIT 35.8 % (37.0-47.0); HEMOGLOBIN 11.9 G/DL (12.0-16.0); LYMPHOCYTES % (AUTO) 47.5 % (20.0-45.0); MEAN CORPUSCULAR VOLUME 99 FL (80-99); NEUTROPHILS % (AUTO) 36.8 % (45.0-75.0); PLATELET COUNT 199 K/UL (150-450); RED BLOOD COUNT 3.61 M/UL (4.20-5.40); RED CELL DISTRIBUTION WIDTH 11.4 % (11.6-14.8); WHITE BLOOD COUNT 4.4 K/UL (4.8-10.8)
[2020-04-07 05:26] LABS: ALANINE AMINOTRANSFERASE 11 U/L (12-78); ALBUMIN 3.2 G/DL (3.4-5.0); ALBUMIN/GLOBULIN RATIO 1.1 (1.0-2.7); ALKALINE PHOSPHATASE 95 U/L (46-116); ANION GAP 13 mmol/L (5-15); ASPARTATE AMINO TRANSFERASE 12 U/L (15-37); BILIRUBIN,TOTAL 0.2 MG/DL (0.2-1.0); BLOOD UREA NITROGEN 20 mg/dL (7-18); CARBON DIOXIDE 21 MMOL/L (21-32); CHLORIDE 104 MMOL/L (98-107); CHOLESTEROL 292 MG/DL (< 200); CREATININE 1.5 MG/DL (0.55-1.30); HDL CHOLESTEROL 39 MG/DL (40-60); POTASSIUM 3.8 MMOL/L (3.5-5.1); SODIUM 138 MMOL/L (136-145); TRIGLYCERIDES 555 MG/DL (30-150)
[2020-04-07] MEDS ORDERED: NovoLOG Insulin Flexpen SUBQ SCH (06:30)
[2020-04-07 08:20] VITALS: BP 137/84
--- NOTE | 2020-04-07 09:15 | Consultation ---
DATE OF CONSULTATION: 04/07/2020 ENDOCRINOLOGY CONSULTATION CONSULTING PHYSICIAN: Jevon Sidhu MD. REFERRING PHYSICIAN: Peterson Hendricks MD. REASON FOR CONSULTATION: Diabetes management. HISTORY OF PRESENT ILLNESS: The patient is a 59-year-old female with past medical history of diabetes, who presented to the hospital with a chief complaint of feeling terrible overall. She had chest pain, very weak, intermittent cough, and fatigue. No fever or chills. No abdominal pain. No other complaint. Upon presentation, the patient was noted to have a glucose of 860 with a creatinine of 2.10, started on IV fluids and insulin, and Endocrinology was consulted. PAST MEDICAL HISTORY: 1. Diabetes. 2. Hypertension. 3. Asthma. SOCIAL HISTORY: No smoking, alcohol, or drug use. REVIEW OF SYSTEMS: As per HPI. MEDICATIONS: Reviewed and reconciled. FAMILY HISTORY: Noncontributory. LABORATORY DATA: K 3.8, chloride 104, bicarb 21, BUN 20, creatinine 1.5, and glucose of 363. A1c is pending. TSH is 1.0. HDL 39, LDL 142. Alkaline phosphatase 128. Urine is positive for marijuana. CBC with WBC of 4.4, hemoglobin 11.9, hematocrit 35.8, platelets of 199,000. Urine shows 3+ ketones and 3+ sugar. PHYSICAL EXAMINATION: VITAL SIGNS: Blood pressure 132/68, heart rate 85, temperature 97.7, respiratory rate 18. HEENT: Pupils are equal and reactive to light. Sclerae are anicteric. NECK: No JVD. No thyromegaly. LUNGS: Clear. HEART: Regular rate and rhythm. ABDOMEN: Positive bowel sounds. EXTREMITIES: No clubbing, cyanosis, or edema. DIAGNOSES: 1. Diabetes, out of control. 2. DANAE. 3. Obesity. PLAN: 1. Start Levemir 30 units daily. 2. Start NovoLog 10 units before each meal. 3. Continue NovoLog sliding scale before meals and at bedtime. 4. Follow hemoglobin A1c. 5. Hypoglycemia protocol has been ordered. 6. Further insulin dose adjustment according to blood glucose values. Thank you, Dr. Hendricks, for the courtesy of this consultation. Jevon Sidhu M.D. DR: ASHUTOSH JOB#: [id number] CC: BOBBY
[2020-04-07] MEDS: Heparin 5000 units/ml inj SUBQ SCH ×2 (09:19→21:26)
[2020-04-07] MEDS: Levemir Flexpen SUBQ SCH (09:19)
[2020-04-07] MEDS: NovoLOG Insulin Flexpen SUBQ SCH ×5 (11:31→21:00)
[2020-04-07 12:00] VITALS: BP 128/75
--- NOTE | 2020-04-07 12:07 | Consultation ---
Consult Note Consult Note I am asked to evaluate the patient at the request of Dr. franklin for renal failure. Patient initially referred to our emergency room for chest pain and feeling very weak. This patient states that she feels "terrible" overall. Complains of chest pain. She states she is very weak. She has had cough intermittently. She is fatigued. She denies fever or chills. She denies nausea or vomiting. She denies abdominal pain. She denies dysuria or hematuria. She has no other complaints. 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. Vital Signs Date Time Temp Pulse Resp B/P (MAP) Pulse Ox O2 Delivery O2 Flow Rate FiO2 04/06/20 16:38 98.4 87 18 139/91 (107) 100 Room Air Sp02 EP Interpretation: reviewed, normal General Appearance: no apparent distress, alert, Head: normocephalic, atraumatic Eyes: bilateral eye normal inspection, bilateral eye PERRL ENT: hearing grossly normal, normal pharynx, no angioedema, normal voice Neck: full range of motion, supple/symm/no masses Respiratory: chest non-tender, lungs clear, normal breath sounds, no respiratory distress, no retraction, no accessory muscle use, speaking full sentences Cardiovascular #1: regular rate, rhythm, no edema Gastrointestinal: normal bowel sounds, non tender, soft, non-distended, no guarding, no rebound Rectal: deferred Musculoskeletal: back normal, normal range of motion, gait/station normal, non- tender Neurologic: alert, motor strength/tone normal, oriented x3, Skin: no rash, normal color Assessment/Plan Acute kidney injury. Presents with creatinine of 2.1 Underlying dehydration due to hyperosmolar syndrome. Presents with blood sugar of 860 Severe hyperglycemia. Uncontrolled diabetes mellitus. Proteinuria Underlying anemia High lipid panel Hypertension Hydrate Blood sugar control with insulin Keep the blood pressure in check Statins and fish oil Aspirin Protonix and Colace Continue per consultants Iron panel ferritin B12 and folate levels Per orders I spent an additional 36 minutes on review of medical records including prior hospital records,consult notes, progress notes, procedures ,imaging labs, hemodynamics, and other clinical documentation. Andrea Spear MD Apr 07, 2020 12:07
--- NOTE | 2020-04-07 13:19 | Consultation ---
History of Present Illness General Date patient seen: Apr 07, 2020 Chief Complaint: Chest Pain Present Illness HPI 59 year old female with hx of HTN, Diabetes, morbid obesity, presented to ER with CC of Epigastric pain and generalized weakness. She stopped eating because of epigastric pain and stopped taking her insulin as well. Her blood sugar in ER was around 800. She is admitted to telemetry for further treatment. Allergies: Coded Allergies: PENICILLINS (Verified Allergy, Unknown, Itching, 05/12/18) Medication History Scheduled Amlodipine Besylate* (Amlodipine Besylate*), 5 MG ORAL DAILY, (Reported) Atorvastatin Calcium* (Atorvastatin Calcium*), 40 MG ORAL BEDTIME, (Reported) Miscellaneous Medications Insulin Lispro (Humalog Kwikpen), Unknown Dose SQ, (Reported) Discontinued Medications Acetaminophen (Tylenol), 325 MG ORAL Q6H PRN for Prn Pain/Headache/Temp > 101 Discontinued Reason: Pt stopped taking med Acetaminophen* (Acetaminophen 325MG Tablet*), 325 MG ORAL Q6H PRN for For Pain Discontinued Reason: Pt stopped taking med Albuterol Sulfate* (Albuterol Sulfate Hhn*), 2.5 MG HHN Q6H, (Reported) Discontinued Reason: Pt stopped taking med Amlodipine Besylate* (Amlodipine Besylate*), 5 MG ORAL DAILY, (Reported) Discontinued Reason: Pt stopped taking med Amlodipine Besylate* (Amlodipine Besylate*), 5 MG ORAL DAILY Discontinued Reason: Pt stopped taking med Amlodipine Besylate* (Amlodipine Besylate*), 5 MG ORAL DAILY Discontinued Reason: Pt stopped taking med Aspirin* (Aspirin*), 325 MG PO DAILY, (Reported) Discontinued Reason: Pt stopped taking med Aspirin* (Aspirin Ec*), 325 MG ORAL DAILY Discontinued Reason: Pt stopped taking med Aspirin* (Aspirin*), 325 MG ORAL DAILY Discontinued Reason: Pt stopped taking med Atorvastatin Calcium* (Atorvastatin Calcium*), 10 MG PO QHS, (Reported) Discontinued Reason: Pt stopped taking med Cyclobenzaprine Hcl* (Flexeril*), 10 MG ORAL THREE TIMES A DAY, (Reported) Discontinued Reason: Pt stopped taking med Hydrocodone/Acetaminophen 5-500 (Vicodin 5-500), 1 TAB PO Q8H Discontinued Reason: Pt stopped taking med Hydroxyzine Hcl (Hydroxyzine Hcl), 10 MG PO Q6HR Discontinued Reason: Pt stopped taking med Montelukast Sodium* (Montelukast Sodium*), 10 MG ORAL DAILY, (Reported) Discontinued Reason: Pt stopped taking med Olmesartan Medoxomil (Benicar), 20 MG PO DAILY, (Reported) Discontinued Reason: Pt stopped taking med Permethrin* (Elimite*), 1 APPLIC TOPIC ONCE Discontinued Reason: Pt stopped taking med Saxagliptin Hcl/Metformin Hcl (Kombiglyze Xr 2.5-1,000 Mg Tab), 2 EACH PO DAILY, (Reported) Discontinued Reason: Pt stopped taking med Saxagliptin Hcl/Metformin Hcl (Kombiglyze Xr 2.5-1,000 Mg Tab), 1 EACH PO DAILY, (Reported) Discontinued Reason: Pt stopped taking med Saxagliptin Hcl/Metformin Hcl (Kombiglyze Xr 2.5-1,000 Mg Tab), 1 EACH PO DAILY Discontinued Reason: Pt stopped taking med Saxagliptin Hcl/Metformin Hcl (Kombiglyze Xr 2.5-1,000 Mg Tab), 1 EACH PO DAILY Discontinued Reason: Pt stopped taking med Valsartan (Diovan), 80 MG ORAL DAILY, (Reported) Discontinued Reason: Pt stopped taking med Valsartan (Diovan), 80 MG ORAL DAILY Discontinued Reason: Pt stopped taking med Valsartan (Diovan), 1 TAB ORAL DAILY Discontinued Reason: Pt stopped taking med Patient History Healthcare decision maker Resuscitation status Advanced Directive on File Past Medical/Surgical History Past Medical/Surgical History: (1) History of diabetes mellitus (2) Morbid obesity (3) History of hypertension (4) Poor compliance Review of Systems Constitutional: Reports: malaise, weakness Gastrointestinal: Reports: abdominal pain All Other Systems: negative except mentioned in HPI Physical Exam General Appearance: overweight Lines, tubes and drains: peripheral HEENT: normocephalic, atraumatic Neck: non-tender, normal alignment Respiratory/Chest: chest wall non-tender, lungs clear Cardiovascular/Chest: normal peripheral pulses, normal rate Abdomen: normal bowel sounds, non tender Genitourinary/Rectal: normal genital exam Extremities: normal range of motion, non-tender Skin Exam: normal pigmentation 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 Last 24 Hour Vital Signs Date Time Temp Pulse Resp B/P (MAP) Pulse Ox O2 Delivery O2 Flow Rate FiO2 04/07/20 12:00 97.9 68 20 128/75 (92) 100 04/07/20 11:52 73 04/07/20 09:18 81 137/84 04/07/20 08:20 97.4 81 20 137/84 (101) 97 04/07/20 08:20 97.4 81 137/84 (101) 04/07/20 07:51 Room Air 04/07/20 07:34 77 04/07/20 04:00 70 04/07/20 04:00 97.7 85 19 132/68 (89) 99 04/07/20 00:00 80 04/07/20 00:00 97.2 91 19 113/62 (79) 99 04/06/20 22:34 Room Air 04/06/20 22:14 98.0 90 18 142/82 98 Room Air 04/06/20 20:30 98.3 86 17 142/87 98 Room Air 04/06/20 18:31 98.3 86 17 142/87 98 Room Air 04/06/20 16:45 98.4 87 18 139/91 100 Room Air 04/06/20 16:45 87 18 Room Air 04/06/20 16:38 98.4 87 18 139/91 (107) 100 Room Air Laboratory Tests Test 04/06/20 17:00 04/06/20 22:16 04/07/20 04:49 04/07/20 11:28 White Blood Count 5.1 K/UL (4.8-10.8) 4.4 K/UL (4.8-10.8) L Red Blood Count 4.03 M/UL (4.20-5.40) L 3.61 M/UL (4.20-5.40) L Hemoglobin 13.2 G/DL (12.0-16.0) 11.9 G/DL (12.0-16.0) L Hematocrit 40.3 % (37.0-47.0) 35.8 % (37.0-47.0) L Mean Corpuscular Volume 100 FL (80-99) H 99 FL (80-99) Mean Corpuscular Hemoglobin 32.7 PG (27.0-31.0) H 32.8 PG (27.0-31.0) H Mean Corpuscular Hemoglobin Concent 32.7 G/DL (32.0-36.0) 33.1 G/DL (32.0-36.0) Red Cell Distribution Width 11.9 % (11.6-14.8) 11.4 % (11.6-14.8) L Platelet Count 261 K/UL (150-450) 199 K/UL (150-450) Mean Platelet Volume 9.9 FL (6.5-10.1) 9.5 FL (6.5-10.1) Neutrophils (%) (Auto) 70.3 % (45.0-75.0) 36.8 % (45.0-75.0) L Lymphocytes (%) (Auto) 20.2 % (20.0-45.0) 47.5 % (20.0-45.0) H Monocytes (%) (Auto) 7.2 % (1.0-10.0) 12.0 % (1.0-10.0) H Eosinophils (%) (Auto) 0.2 % (0.0-3.0) 1.3 % (0.0-3.0) Basophils (%) (Auto) 2.0 % (0.0-2.0) 2.4 % (0.0-2.0) H Urine Color Pale yellow Urine Appearance Clear Urine pH 5 (4.5-8.0) Urine Specific [place] 1.010 (1.005-1.035) Urine Protein 1+ (NEGATIVE) H Urine Glucose (UA) 4+ (NEGATIVE) H Urine Ketones 3+ (NEGATIVE) H Urine Blood Negative (NEGATIVE) Urine Nitrite Negative (NEGATIVE) Urine Bilirubin Negative (NEGATIVE) Urine Urobilinogen Normal MG/DL (0.0-1.0) Urine Leukocyte Esterase Negative (NEGATIVE) Urine RBC 0-2 /HPF (0 - 2) Urine WBC 0-2 /HPF (0 - 2) Urine Squamous Epithelial Cells Few /LPF (NONE/OCC) Urine Bacteria Few /HPF (NONE) Sodium Level 127 MMOL/L (136-145) L 138 MMOL/L (136-145) # Potassium Level 4.9 MMOL/L (3.5-5.1) 3.8 MMOL/L (3.5-5.1) Chloride Level 90 MMOL/L (98-107) L 104 MMOL/L (98-107) Carbon Dioxide Level 20 MMOL/L (21-32) L 21 MMOL/L (21-32) Anion Gap 17 mmol/L (5-15) H 13 mmol/L (5-15) Blood Urea Nitrogen 29 mg/dL (7-18) H 20 mg/dL (7-18) H Creatinine 2.1 MG/DL (0.55-1.30) H 1.5 MG/DL (0.55-1.30) H Estimat Glomerular Filtration Rate 29.2 mL/min (>60) 43.0 mL/min (>60) Glucose Level 860 MG/DL (74-106) *H 363 MG/DL (74-106) #H Calcium Level 9.1 MG/DL (8.5-10.1) 8.0 MG/DL (8.5-10.1) L Total Bilirubin 0.6 MG/DL (0.2-1.0) 0.2 MG/DL (0.2-1.0) Aspartate Amino Transf (AST/SGOT) 13 U/L (15-37) L 12 U/L (15-37) L Alanine Aminotransferase (ALT/SGPT) 17 U/L (12-78) 11 U/L (12-78) L Alkaline Phosphatase 128 U/L (46-116) H 95 U/L (46-116) Troponin I 0.000 ng/mL (0.000-0.056) Total Protein 8.0 G/DL (6.4-8.2) 6.1 G/DL (6.4-8.2) L Albumin 4.2 G/DL (3.4-5.0) 3.2 G/DL (3.4-5.0) L Globulin 3.8 g/dL 2.9 g/dL Albumin/Globulin Ratio 1.1 (1.0-2.7) 1.1 (1.0-2.7) Urine Opiates Screen Negative (NEGATIVE) Urine Barbiturates Screen Negative (NEGATIVE) Phencyclidine (PCP) Screen Negative (NEGATIVE) Urine Amphetamines Screen Negative (NEGATIVE) Urine Benzodiazepines Screen Negative (NEGATIVE) Urine Cocaine Screen Negative (NEGATIVE) Urine Marijuana (THC) Screen Positive (NEGATIVE) H Acetone Level Positive-small (NEGATIVE) POC Whole Blood Glucose Pending 360 MG/DL (74-106) H Hemoglobin A1c 9.8 % (4.3-6.0) H Triglycerides Level 555 MG/DL (30-150) H Cholesterol Level 292 MG/DL (< 200) H LDL Cholesterol 142 mg/dL (<100) H HDL Cholesterol 39 MG/DL (40-60) L Cholesterol/HDL Ratio 7.5 (3.3-4.4) H Thyroid Stimulating Hormone (TSH) 1.055 uiU/mL (0.358-3.740) Height (Feet): 5 Height (Inches): 6.00 Weight (Pounds): 190 Medications Current Medications Medications (Trade) Dose Ordered Sig/Stefan Route PRN Reason Start Time Stop Time Status Last Admin Dose Admin Acetaminophen (Tylenol) 650 mg Q4H PRN ORAL fever 04/06/20 21:15 05/06/20 21:14 Albuterol/ Ipratropium (Albuterol/ Ipratropium) 3 ml Q4H PRN HHN Shortness of Breath 04/06/20 21:15 04/11/20 21:14 Amlodipine Besylate (Norvasc) 5 mg DAILY ORAL 04/07/20 09:00 05/07/20 08:59 04/07/20 09:18 Aspirin (ASA) 81 mg DAILY ORAL 04/08/20 09:00 05/23/20 08:59 Atorvastatin Calcium (Lipitor) 40 mg BEDTIME ORAL 04/07/20 21:00 07/06/20 20:59 Clonidine HCl (Catapres Tab) 0.1 mg Q4H PRN ORAL sbp more than 160 04/06/20 21:15 07/05/20 21:14 Dextrose (Dextrose 50%) 25 ml Q30M PRN IV Hypoglycemia 04/07/20 08:45 07/06/20 08:44 Dextrose (Dextrose 50%) 50 ml Q30M PRN IV Hypoglycemia 04/07/20 08:45 07/06/20 08:44 Docusate Sodium (Colace) 100 mg THREE TIMES A DAY ORAL 04/07/20 13:00 05/07/20 12:59 Fish Oil (Fish Oil) 1,000 mg BID ORAL 04/07/20 18:00 05/07/20 17:59 Heparin Sodium (Porcine) (Heparin 5000 units/ml) 5,000 units EVERY 12 HOURS SUBQ 04/07/20 09:00 8/24/20 08:59 04/07/20 09:19 Insulin Aspart (NovoLOG) BEFORE MEALS AND HS SUBQ 04/07/20 11:30 07/06/20 11:29 04/07/20 11:32 Insulin Aspart (NovoLOG) 10 units NOVOTIAC SUBQ 04/07/20 11:50 07/06/20 11:49 04/07/20 11:31 Insulin Detemir (Levemir) 30 units DAILY SUBQ 04/07/20 09:00 07/06/20 08:59 04/07/20 09:19 Nitroglycerin (Ntg) 0.4 mg Q5M X 3 DOSES PRN SL Prn Chest Pain 04/06/20 21:15 05/06/20 21:14 Ondansetron HCl (Zofran) 4 mg Q6H PRN IVP Nausea & Vomiting 04/06/20 21:15 05/06/20 21:14 Pantoprazole (Protonix) 40 mg EVERY 12 HOURS ORAL 04/07/20 21:00 05/07/20 20:59 Polyethylene Glycol (Miralax) 17 gm HSPRN PRN ORAL Constipation 04/06/20 21:15 05/06/20 21:14 Sodium Chloride 1,000 ml @ 75 mls/hr [id number] IVLG 04/07/20 12:30 05/06/20 12:29 04/07/20 12:46 Temazepam (Restoril) 15 mg HSPRN PRN ORAL Insomnia 04/06/20 21:15 04/13/20 21:14 Assessment/Plan Problem List: (1) Hyperosmolar syndrome ICD Codes: E87.0 - Hyperosmolality and hypernatremia SNOMED: 54056065, 98775629 (2) Uncontrolled diabetes mellitus ICD Codes: E11.65 - Type 2 diabetes mellitus with hyperglycemia SNOMED: 82852591, 011069622 (3) DANAE (acute kidney injury) ICD Codes: N17.9 - Acute kidney failure, unspecified SNOMED: 99164247, 9156884 (4) Epigastric pain ICD Codes: R10.13 - Epigastric pain SNOMED: 50276414 (5) Poor compliance ICD Codes: Z91.19 - Patient's noncompliance with other medical treatment and regimen SNOMED: 2982728 (6) History of hypertension ICD Codes: Z86.79 - Personal history of other diseases of the circulatory system SNOMED: 442163957 (7) Morbid obesity ICD Codes: E66.01 - Morbid (severe) obesity due to excess calories SNOMED: 564476715 (8) History of diabetes mellitus ICD Codes: Z86.39 - Personal history of other endocrine, nutritional and metabolic disease SNOMED: 714124030 Assessment/Plan: iv hydration sliding scale renal follow up symptomatic treatment check electrolytes Peterson Hendricks MD Apr 07, 2020 13:19
[2020-04-07] MEDS: Docusate 100mg cap ORAL SCH ×2 (13:41→17:38)
--- NOTE | 2020-04-07 13:44 | Diagnostic Imaging Report ---
Indication: Chest pain Technique: One view of the chest Comparison: none Findings: Lungs and pleural spaces are clear. Heart size is normal. Impression: No acute process
[2020-04-07 16:20] VITALS: BP 145/87
--- NOTE | 2020-04-07 17:19 | History & Physical ---
History and Physical History & Physicial Derrek Valenzuela MD Apr 07, 2020 17:19
[2020-04-07 20:00] VITALS: BP 147/97
--- NOTE | 2020-04-07 21:15 | History and Physical Report ---
DATE OF ADMISSION: 04/06/2020 CHIEF COMPLAINT: Chest pain and feeling weak. HISTORY OF PRESENT ILLNESS: This is a 59-year-old very delightful female with past medical history significant for coronary artery disease status post stent placement x3, morbid obesity, chronic smoker with 1 pack smoking per day, history of asthma, hypertension, diabetes type 2, who presented to the emergency department complaining about epigastric pain associated with generalized weakness. She stopped eating because of the epigastric pain and stopped taking insulin as well. Her blood glucose level was noted to be around 800 upon arrival to the ER and subsequently, the patient was admitted to the hospital with uncontrolled diabetes. PAST MEDICAL HISTORY/PAST SURGICAL HISTORY: As above. History of coronary artery disease, status post PTCA with stent placement, hypertension, asthma, morbid obesity, dyslipidemia, and diabetes type 2. MEDICATIONS AT HOME: Significant for amlodipine, atorvastatin, aspirin, metformin, and Kombiglyze. The patient is on Diovan. ALLERGIES: Penicillin. SOCIAL HISTORY: The patient currently smokes 1 pack of cigarettes a day. Denies any alcohol or substance abuse. She socially drinks. FAMILY HISTORY: Noncontributory. REVIEW OF SYSTEMS: Denies any dysuria, frequency, hematuria, or hematochezia. Denies any hemoptysis or hematochezia. Complained about the leg edema on and off. Denies any loss of consciousness. Denies any fall or head trauma. PHYSICAL EXAMINATION: VITAL SIGNS: On admission, temperature 98.4, pulse of 87, respirations 18, and blood pressure 139/91. GENERAL: The patient is awake and responsive, in no acute distress. HEAD AND NECK: Pupils are reactive to light. Extraocular movements intact. Neck was supple. No JVD. LUNGS: Good air entry. No wheezing or rales. HEART: S1, S2. Regular rhythm. No murmur or gallops. ABDOMEN: Soft, nondistended, and nontender. No rebound tenderness. No fluid shift. Morbidly obese. EXTREMITIES: No cyanosis, clubbing, or edema. NEUROLOGIC: Cranial nerves II through to XII grossly intact. Motor is 5/5 in all extremities. Gait is intact. RECTAL/: Refused and deferred. PSYCHIATRIC: Mood and affect is intact. LABORATORY DATA: On admission from the emergency room, WBC of 5.1, hemoglobin of 13, hematocrit of 40, and platelets is 261,000. The patient has sodium of 127, potassium 4.9, chloride 90, bicarbonate 20, BUN 29, creatinine 2.1, and glucose level is 860. First troponin is less than 0.0. Alkaline phosphatase was 128. Total protein is 8.0. Triglycerides 555, cholesterol is 292, and LDL is 142. Urine drug screen positive for marijuana, otherwise all negative. Acetone level is positive . Urinalysis is +1 protein, +3 ketones, +4 glucose. Chest x-ray, no acute cardiopulmonary disease. ASSESSMENT: 1. Uncontrolled diabetes. 2. Hyponatremia. 3. Acute kidney injury and chronic renal insufficiency. 4. Hypertension. 5. Morbid obesity. 6. Asthma. 7. Coronary artery disease status post PTCA with stent placement. 8. Dyslipidemia with hypertriglyceridemia. 9. Chronic smoker. PLAN: 1. Admit the patient to monitor unit. We follow up with Dr. Jevon Sidhu, Endocrine consultation as well as Dr. Hendricks, Pulmonary Critical Care and Dr. Andrea Spear from Nephrology and intravenous hydration. We will monitor blood glucose level closely. Resume insulin sliding scale. 2. DVT prophylaxis. On heparin subcutaneous. 3. Code status, Full Code. 4. Discussed with the patient extensively with regard to the diabetic management and we will follow up with smoke cessation. Derrek Valenzuela M.D. DR: IKE JOB#: [id number] CC:
[2020-04-07] MEDS: Atorvastatin 20mg tab ORAL SCH (21:23)
[2020-04-08] VITALS: BP 139/83
[2020-04-08 04:00] VITALS: BP 141/85
[2020-04-08 05:51] LABS: BASOPHILS % (AUTO) 1.8 % (0.0-2.0); EOSINOPHILS % (AUTO) 1.6 % (0.0-3.0); HEMATOCRIT 37.5 % (37.0-47.0); HEMOGLOBIN 12.5 G/DL (12.0-16.0); LYMPHOCYTES % (AUTO) 50.3 % (20.0-45.0); MEAN CORPUSCULAR VOLUME 99 FL (80-99); MONOCYTES % (AUTO) 8.9 % (1.0-10.0); NEUTROPHILS % (AUTO) 37.4 % (45.0-75.0); PLATELET COUNT 189 K/UL (150-450); RED BLOOD COUNT 3.81 M/UL (4.20-5.40); RED CELL DISTRIBUTION WIDTH 11.1 % (11.6-14.8); WHITE BLOOD COUNT 4.1 K/UL (4.8-10.8)
[2020-04-08 06:21] LABS: ALBUMIN 3.1 G/DL (3.4-5.0); ALKALINE PHOSPHATASE 90 U/L (46-116); ANION GAP 9 mmol/L (5-15); ASPARTATE AMINO TRANSFERASE < 5 U/L (15-37); BILIRUBIN,TOTAL 0.3 MG/DL (0.2-1.0); BLOOD UREA NITROGEN 9 mg/dL (7-18); CALCIUM 8.5 MG/DL (8.5-10.1); CARBON DIOXIDE 26 MMOL/L (21-32); CHLORIDE 104 MMOL/L (98-107); CREATININE 1.2 MG/DL (0.55-1.30); FERRITIN 292 NG/ML (8-388); GAMMA GLUTAMYL TRANSPEPTIDASE 28 U/L (5-85); PHOSPHORUS 4.4 MG/DL (2.5-4.9); POTASSIUM 3.4 MMOL/L (3.5-5.1); SODIUM 139 MMOL/L (136-145)
[2020-04-08] MEDS: NovoLOG Insulin Flexpen SUBQ SCH ×7 (06:30→21:00)
[2020-04-08 06:45] LABS: % IRON SATURATION 43 % (15-50); IRON 76 ug/dL (50-175); TOTAL IRON BINDING CAPACITY 176 ug/dL (250-450)
[2020-04-08 07:15] LABS: ALANINE AMINOTRANSFERASE < 6 U/L (12-78)
--- NOTE | 2020-04-08 07:22 | Pulmonology Progress Note ---
Subjective Allergies: Coded Allergies: PENICILLINS (Verified Allergy, Unknown, Itching, 05/12/18) Subjective afebrile, BS better denies cough, congestion SOB, CP Objective Last 24 Hour Vital Signs Date Time Temp Pulse Resp B/P (MAP) Pulse Ox O2 Delivery O2 Flow Rate FiO2 04/08/20 04:00 97.9 61 19 141/85 (103) 100 04/08/20 04:00 61 04/08/20 00:00 97.7 75 19 139/83 (101) 100 04/08/20 00:00 75 04/07/20 21:54 99.0 04/07/20 21:00 Room Air 04/07/20 20:00 98.8 87 19 147/97 (114) 100 04/07/20 20:00 87 04/07/20 16:20 98.6 78 18 145/87 (106) 100 04/07/20 15:34 80 04/07/20 12:00 97.9 68 20 128/75 (92) 100 04/07/20 11:52 73 04/07/20 09:18 81 137/84 04/07/20 08:20 97.4 81 20 137/84 (101) 97 04/07/20 08:20 97.4 81 137/84 (101) 04/07/20 07:51 Room Air 04/07/20 07:34 77 Intake and Output 04/07/20 04/08/20 19:00 07:00 Intake Total 750 ml Balance 750 ml Intake Oral 750 ml # Voids 5 General Appearance: no acute distress, other - obese AA female in NAD HEENT: normocephalic, atraumatic, anicteric, mucous membranes moist, PERRL Respiratory: lungs clear, no accessory muscle use Cardiovascular: normal rate, regular rhythm - SR on tele , no JVD Abdomen: soft, non tender - obese Extremities: no edema Skin: rash Neurologic: no motor/sensory deficits, alert, oriented x 3, responsive Lymphatic: no neck adenopathy Musculoskeletal: normal muscle bulk Laboratory Tests 04/07/20 11:28: POC Whole Blood Glucose 360H 04/07/20 16:53: POC Whole Blood Glucose 234H 04/07/20 21:22: POC Whole Blood Glucose [Pending] 04/08/20 05:20: White Blood Count 4.1L, Red Blood Count 3.81L, Hemoglobin 12.5, Hematocrit 37.5 , Mean Corpuscular Volume 99, Mean Corpuscular Hemoglobin 32.8H, Mean Corpuscular Hemoglobin Concent 33.2, Red Cell Distribution Width 11.1L, Platelet Count 189, Mean Platelet Volume 9.0, Neutrophils (%) (Auto) 37.4L, Lymphocytes (%) (Auto) 50.3H, Monocytes (%) (Auto) 8.9, Eosinophils (%) (Auto) 1.6, Basophils (%) (Auto) 1.8, Sodium Level 139, Potassium Level 3.4L, Chloride Level 104, Carbon Dioxide Level 26, Anion Gap 9, Blood Urea Nitrogen 9, Creatinine 1.2, Estimat Glomerular Filtration Rate 55.8, Glucose Level 300H, Uric Acid 3.8, Calcium Level 8.5, Phosphorus Level 4.4, Magnesium Level 1.9, Iron Level 76, Total Iron Binding Capacity 176L, Percent Iron Saturation 43, Unsaturated Iron Binding 100L, Ferritin 292, Total Bilirubin 0.3, Gamma Glutamyl Transpeptidase 28, Aspartate Amino Transf (AST/SGOT) < 5L, Alanine Aminotransferase (ALT/SGPT) < 6L, Alkaline Phosphatase 90, Troponin I 0.014, C- Reactive Protein, Quantitative < 0.4, Pro-B-Type Natriuretic Peptide 1444H, Total Protein 6.1L, Albumin 3.1L, Globulin 3.0, Albumin/Globulin Ratio 1.0, Vitamin B12 Level 721, Folate 12.6 Current Medications Medications (Trade) Dose Ordered Sig/Stefan Route PRN Reason Start Time Stop Time Status Last Admin Dose Admin Acetaminophen (Tylenol) 650 mg Q4H PRN ORAL fever 04/06/20 21:15 05/06/20 21:14 04/07/20 21:24 Acetaminophen (Tylenol) 650 mg Q6H PRN ORAL Pain Scale (3-5) 04/07/20 20:15 05/07/20 20:14 Albuterol/ Ipratropium (Albuterol/ Ipratropium) 3 ml Q4H PRN HHN Shortness of Breath 04/06/20 21:15 04/11/20 21:14 Amlodipine Besylate (Norvasc) 5 mg DAILY ORAL 04/07/20 09:00 05/07/20 08:59 04/07/20 09:18 Aspirin (ASA) 81 mg DAILY ORAL 04/08/20 09:00 05/23/20 08:59 Atorvastatin Calcium (Lipitor) 40 mg BEDTIME ORAL 04/07/20 21:00 07/06/20 20:59 04/07/20 21:23 Clonidine HCl (Catapres Tab) 0.1 mg Q4H PRN ORAL sbp more than 160 04/06/20 21:15 07/05/20 21:14 Dextrose (Dextrose 50%) 25 ml Q30M PRN IV Hypoglycemia 04/07/20 08:45 07/06/20 08:44 Dextrose (Dextrose 50%) 50 ml Q30M PRN IV Hypoglycemia 04/07/20 08:45 07/06/20 08:44 Docusate Sodium (Colace) 100 mg THREE TIMES A DAY ORAL 04/07/20 13:00 05/07/20 12:59 04/07/20 17:38 Fish Oil (Fish Oil) 1,000 mg BID ORAL 04/07/20 18:00 05/07/20 17:59 04/07/20 17:38 Heparin Sodium (Porcine) (Heparin 5000 units/ml) 5,000 units EVERY 12 HOURS SUBQ 04/07/20 09:00 05/22/20 08:59 04/07/20 21:26 Insulin Aspart (NovoLOG) BEFORE MEALS AND HS SUBQ 04/07/20 11:30 07/06/20 11:29 04/08/20 06:30 Insulin Aspart (NovoLOG) 10 units NOVOTIAC SUBQ 04/07/20 11:50 07/06/20 11:49 04/08/20 06:54 Insulin Detemir (Levemir) 30 units DAILY SUBQ 04/07/20 09:00 07/06/20 08:59 04/07/20 09:19 Nitroglycerin (Ntg) 0.4 mg Q5M X 3 DOSES PRN SL Prn Chest Pain 04/06/20 21:15 05/06/20 21:14 Ondansetron HCl (Zofran) 4 mg Q6H PRN IVP Nausea & Vomiting 04/06/20 21:15 05/06/20 21:14 Pantoprazole (Protonix) 40 mg EVERY 12 HOURS ORAL 04/07/20 21:00 8/9/20 20:59 04/07/20 21:23 Polyethylene Glycol (Miralax) 17 gm HSPRN PRN ORAL Constipation 04/06/20 21:15 05/06/20 21:14 Sodium Chloride 1,000 ml @ 75 mls/hr [id number] IVLG 04/07/20 12:30 05/06/20 12:29 04/08/20 00:53 Temazepam (Restoril) 15 mg HSPRN PRN ORAL Insomnia 04/06/20 21:15 04/13/20 21:14 Assessment/Plan Assessment/Plan ASSESSMENT Hyperosmolar syndrome Diabetes mellitus [id number] with hyperglycemia Acute kidney injury Asthma Morbid obesity CAD , status post PTCA with stent placement Dyslipidemia Smoker Hyponatremia PLAN OF CARE tele O2 titrate to keep sat above 92 pulmonary toilet CXR-> no acute cardiopulmonary pathology BS management per endo recs with JACKELINE Calixto SA NovoLog AC and SSI diabetic diet, diabetic teaching Hgb A1c 9.8 -> clearly not at goal patient will need further optimization of BS as outpatient serial troponin x2 negative ECG no acute ischemic changes monitor renal parameters lytes correct electrolytes as needed DANAE resolved , creatinine down to 1.2 -> hyperglycemia continue home meds a/PLT therapy with ASA and statin DVT and GI prophylaxis BP management with [employer] career development counselor on smoking cessation, declined Nicotine patch supportive care case discussed and evaluated by supervising physician Livia Tran NP Apr 08, 2020 07:22
[2020-04-08 07:53] VITALS: BP 138/73
[2020-04-08] MEDS: Aspirin Baby 81mg ORAL SCH (08:31)
[2020-04-08] MEDS: Docusate 100mg cap ORAL SCH ×3 (08:31→17:12)
[2020-04-08] MEDS: Levemir Flexpen SUBQ SCH (08:32)
[2020-04-08] MEDS: Heparin 5000 units/ml inj SUBQ SCH ×2 (08:33→20:30)
[2020-04-08 12:00] VITALS: BP 128/68
--- NOTE | 2020-04-08 13:02 | Internal Med Progress Note ---
Subjective Date of Service: Apr 08, 2020 Physician Name MaribethJeremy Attending Physician Derrek Valenzuela MD Current Medications Medications (Trade) Dose Ordered Sig/Stefan Route PRN Reason Start Time Stop Time Status Last Admin Dose Admin Acetaminophen (Tylenol) 650 mg Q4H PRN ORAL fever 04/06/20 21:15 05/06/20 21:14 04/08/20 11:48 Acetaminophen (Tylenol) 650 mg Q6H PRN ORAL Pain Scale (3-5) 04/07/20 20:15 05/07/20 20:14 Albuterol/ Ipratropium (Albuterol/ Ipratropium) 3 ml Q4H PRN HHN Shortness of Breath 04/06/20 21:15 04/11/20 21:14 Amlodipine Besylate (Norvasc) 5 mg DAILY ORAL 04/07/20 09:00 05/07/20 08:59 04/08/20 08:31 Aspirin (ASA) 81 mg DAILY ORAL 04/08/20 09:00 05/23/20 08:59 04/08/20 08:31 Atorvastatin Calcium (Lipitor) 40 mg BEDTIME ORAL 04/07/20 21:00 07/06/20 20:59 04/07/20 21:23 Clonidine HCl (Catapres Tab) 0.1 mg Q4H PRN ORAL sbp more than 160 04/06/20 21:15 07/05/20 21:14 Dextrose (Dextrose 50%) 25 ml Q30M PRN IV Hypoglycemia 04/07/20 08:45 07/06/20 08:44 Dextrose (Dextrose 50%) 50 ml Q30M PRN IV Hypoglycemia 04/07/20 08:45 07/06/20 08:44 Docusate Sodium (Colace) 100 mg THREE TIMES A DAY ORAL 04/07/20 13:00 05/07/20 12:59 04/08/20 12:43 Fish Oil (Fish Oil) 1,000 mg BID ORAL 04/07/20 18:00 05/07/20 17:59 04/08/20 08:31 Heparin Sodium (Porcine) (Heparin 5000 units/ml) 5,000 units EVERY 12 HOURS SUBQ 04/07/20 09:00 05/22/20 08:59 04/08/20 08:33 Insulin Aspart (NovoLOG) BEFORE MEALS AND HS SUBQ 04/07/20 11:30 07/06/20 11:29 04/08/20 11:55 Insulin Aspart (NovoLOG) 10 units NOVOTIAC SUBQ 04/07/20 11:50 07/06/20 11:49 04/08/20 11:38 Insulin Detemir (Levemir) 30 units DAILY SUBQ 04/07/20 09:00 07/06/20 08:59 04/08/20 08:32 Nitroglycerin (Ntg) 0.4 mg Q5M X 3 DOSES PRN SL Prn Chest Pain 04/06/20 21:15 05/06/20 21:14 Ondansetron HCl (Zofran) 4 mg Q6H PRN IVP Nausea & Vomiting 04/06/20 21:15 05/06/20 21:14 Pantoprazole (Protonix) 40 mg EVERY 12 HOURS ORAL 04/07/20 21:00 05/07/20 20:59 04/08/20 08:31 Polyethylene Glycol (Miralax) 17 gm HSPRN PRN ORAL Constipation 04/06/20 21:15 05/06/20 21:14 Sodium Chloride 1,000 ml @ 75 mls/hr [id number] IVLG 04/07/20 12:30 05/06/20 12:29 04/08/20 00:53 Temazepam (Restoril) 15 mg HSPRN PRN ORAL Insomnia 04/06/20 21:15 04/13/20 21:14 Allergies: Coded Allergies: PENICILLINS (Verified Allergy, Unknown, Itching, 05/12/18) ROS Limited/Unobtainable: No Constitutional: Reports: no symptoms HEENT: Reports: no symptoms Cardiovascular: Reports: no symptoms Respiratory: Reports: no symptoms Gastrointestinal/Abdominal: Reports: abdominal pain Genitourinary: Reports: no symptoms Neurologic/Psychiatric: Reports: no symptoms Subjective 59 YO F admitted with epigastric pain; now uncontrolled diabetes. Cover for Int Jese- Dr Valenzuela Objective Last Vital Signs Date Time Temp Pulse Resp B/P (MAP) Pulse Ox O2 Delivery O2 Flow Rate FiO2 04/08/20 12:00 97.7 74 20 128/68 (88) 98 04/08/20 09:00 Room Air Laboratory Tests Test 04/07/20 16:53 04/07/20 21:22 04/08/20 05:20 7/11/20 11:05 POC Whole Blood Glucose 234 MG/DL (74-106) H Pending 263 MG/DL (74-106) H White Blood Count 4.1 K/UL (4.8-10.8) L Red Blood Count 3.81 M/UL (4.20-5.40) L Hemoglobin 12.5 G/DL (12.0-16.0) Hematocrit 37.5 % (37.0-47.0) Mean Corpuscular Volume 99 FL (80-99) Mean Corpuscular Hemoglobin 32.8 PG (27.0-31.0) H Mean Corpuscular Hemoglobin Concent 33.2 G/DL (32.0-36.0) Red Cell Distribution Width 11.1 % (11.6-14.8) L Platelet Count 189 K/UL (150-450) Mean Platelet Volume 9.0 FL (6.5-10.1) Neutrophils (%) (Auto) 37.4 % (45.0-75.0) L Lymphocytes (%) (Auto) 50.3 % (20.0-45.0) H Monocytes (%) (Auto) 8.9 % (1.0-10.0) Eosinophils (%) (Auto) 1.6 % (0.0-3.0) Basophils (%) (Auto) 1.8 % (0.0-2.0) Sodium Level 139 MMOL/L (136-145) Potassium Level 3.4 MMOL/L (3.5-5.1) L Chloride Level 104 MMOL/L (98-107) Carbon Dioxide Level 26 MMOL/L (21-32) Anion Gap 9 mmol/L (5-15) Blood Urea Nitrogen 9 mg/dL (7-18) Creatinine 1.2 MG/DL (0.55-1.30) Estimat Glomerular Filtration Rate 55.8 mL/min (>60) Glucose Level 300 MG/DL (74-106) H Uric Acid 3.8 MG/DL (2.6-7.2) Calcium Level 8.5 MG/DL (8.5-10.1) Phosphorus Level 4.4 MG/DL (2.5-4.9) Magnesium Level 1.9 MG/DL (1.8-2.4) Iron Level 76 ug/dL (50-175) Total Iron Binding Capacity 176 ug/dL (250-450) L Percent Iron Saturation 43 % (15-50) Unsaturated Iron Binding 100 ug/dL (112-346) L Ferritin 292 NG/ML (8-388) Total Bilirubin 0.3 MG/DL (0.2-1.0) Gamma Glutamyl Transpeptidase 28 U/L (5-85) Aspartate Amino Transf (AST/SGOT) < 5 U/L (15-37) L Alanine Aminotransferase (ALT/SGPT) < 6 U/L (12-78) L Alkaline Phosphatase 90 U/L (46-116) Troponin I 0.014 ng/mL (0.000-0.056) C-Reactive Protein, Quantitative < 0.4 mg/dL (0.00-0.90) Pro-B-Type Natriuretic Peptide 1444 pg/mL (0-125) H Total Protein 6.1 G/DL (6.4-8.2) L Albumin 3.1 G/DL (3.4-5.0) L Globulin 3.0 g/dL Albumin/Globulin Ratio 1.0 (1.0-2.7) Vitamin B12 Level 721 PG/ML (193-986) Folate 12.6 NG/ML (8.6-58.9) Intake and Output 04/07/20 04/08/20 19:00 07:00 Intake Total 750 ml Balance 750 ml Intake Oral 750 ml # Voids 5 Objective PHYSICAL EXAMINATION: GENERAL: The patient is awake and responsive, in no acute distress. HEAD AND NECK: Pupils are reactive to light. Extraocular movements intact. Neck was supple. No JVD. LUNGS: Good air entry. No wheezing or rales. HEART: S1, S2. Regular rhythm. No murmur or gallops. ABDOMEN: Soft, nondistended, and nontender. No rebound tenderness. No fluid shift. Morbidly obese. EXTREMITIES: No cyanosis, clubbing, or edema. NEUROLOGIC: Cranial nerves II through to XII grossly intact. Motor is 5/5 in all extremities. Gait is intact. RECTAL/: Refused and deferred. PSYCHIATRIC: Mood and affect is intact. Assessment/Plan Assessment/Plan ASSESSMENT: 1. Uncontrolled diabetes. 2. Hyponatremia. 3. Acute kidney injury and chronic renal insufficiency. 4. Hypertension. 5. Morbid obesity. 6. Asthma. 7. Coronary artery disease status post PTCA with stent placement. 8. Dyslipidemia with hypertriglyceridemia. 9. Chronic smoker. PLAN: 1. Med/Surg 2. Dr. Jevon Sidhu = Endocrine consultation 3. Dr. Hendricks=Pulmonary Critical Care 4. Dr. Andrea Spear = Nephrology 5. intravenous hydration; monitor blood glucose level closely. 6. Novolog insulin sliding scale. 7. DVT prophylaxis= heparin subcutaneous. 8. Code status, Full Code. Jeremy Stahl MD Apr 08, 2020 13:02
--- NOTE | 2020-04-08 13:19 | Nephrology Progress Note ---
Assessment/Plan Problem List: (1) DANAE (acute kidney injury) (2) Hyperosmolar syndrome (3) Uncontrolled diabetes mellitus (4) History of hypertension (5) Anemia Assessment Acute kidney injury. Presents with creatinine of 2.1, now WNL with Hydration Underlying dehydration due to hyperosmolar syndrome. Presents with blood sugar of 860 Severe hyperglycemia. Uncontrolled diabetes mellitus. Proteinuria Underlying anemia High lipid panel Hypertension Plan Hydrate as needed, potassium chloride supplement p.o. ordered Blood sugar control with insulin Keep the blood pressure in check Statins and fish oil Aspirin Protonix and Colace Continue per consultants Iron panel ferritin B12 and folate levels Per orders Subjective ROS Limited/Unobtainable: No Objective Objective Last 24 Hour Vital Signs Date Time Temp Pulse Resp B/P (MAP) Pulse Ox O2 Delivery O2 Flow Rate FiO2 04/08/20 12:00 97.7 74 20 128/68 (88) 98 04/08/20 12:00 74 04/08/20 09:00 Room Air 04/08/20 08:31 73 138/73 04/08/20 08:00 101 04/08/20 07:53 97.9 73 18 138/73 (94) 99 04/08/20 04:00 97.9 61 19 141/85 (103) 100 04/08/20 04:00 61 04/08/20 00:00 97.7 75 19 139/83 (101) 100 04/08/20 00:00 75 04/07/20 21:54 99.0 04/07/20 21:00 Room Air 04/07/20 20:00 98.8 87 19 147/97 (114) 100 04/07/20 20:00 87 04/07/20 16:20 98.6 78 18 145/87 (106) 100 04/07/20 15:34 80 Intake and Output 04/07/20 04/08/20 19:00 07:00 Intake Total 750 ml Balance 750 ml Intake Oral 750 ml # Voids 5 Current Medications Medications (Trade) Dose Ordered Sig/Stefan Route PRN Reason Start Time Stop Time Status Last Admin Dose Admin Acetaminophen (Tylenol) 650 mg Q4H PRN ORAL fever 04/06/20 21:15 05/06/20 21:14 04/08/20 11:48 Acetaminophen (Tylenol) 650 mg Q6H PRN ORAL Pain Scale (3-5) 04/07/20 20:15 05/07/20 20:14 Albuterol/ Ipratropium (Albuterol/ Ipratropium) 3 ml Q4H PRN HHN Shortness of Breath 04/06/20 21:15 04/11/20 21:14 Amlodipine Besylate (Norvasc) 5 mg DAILY ORAL 04/07/20 09:00 05/07/20 08:59 04/08/20 08:31 Aspirin (ASA) 81 mg DAILY ORAL 04/08/20 09:00 05/23/20 08:59 04/08/20 08:31 Atorvastatin Calcium (Lipitor) 40 mg BEDTIME ORAL 04/07/20 21:00 07/06/20 20:59 04/07/20 21:23 Clonidine HCl (Catapres Tab) 0.1 mg Q4H PRN ORAL sbp more than 160 04/06/20 21:15 07/05/20 21:14 Dextrose (Dextrose 50%) 25 ml Q30M PRN IV Hypoglycemia 04/07/20 08:45 07/06/20 08:44 Dextrose (Dextrose 50%) 50 ml Q30M PRN IV Hypoglycemia 04/07/20 08:45 07/06/20 08:44 Docusate Sodium (Colace) 100 mg THREE TIMES A DAY ORAL 04/07/20 13:00 05/07/20 12:59 04/08/20 12:43 Fish Oil (Fish Oil) 1,000 mg BID ORAL 04/07/20 18:00 05/07/20 17:59 04/08/20 08:31 Heparin Sodium (Porcine) (Heparin 5000 units/ml) 5,000 units EVERY 12 HOURS SUBQ 04/07/20 09:00 05/22/20 08:59 04/08/20 08:33 Insulin Aspart (NovoLOG) BEFORE MEALS AND HS SUBQ 04/07/20 11:30 07/06/20 11:29 04/08/20 11:55 Insulin Aspart (NovoLOG) 10 units NOVOTIAC SUBQ 04/07/20 11:50 07/06/20 11:49 04/08/20 11:38 Insulin Detemir (Levemir) 30 units DAILY SUBQ 04/07/20 09:00 07/06/20 08:59 04/08/20 08:32 Nitroglycerin (Ntg) 0.4 mg Q5M X 3 DOSES PRN SL Prn Chest Pain 04/06/20 21:15 05/06/20 21:14 Ondansetron HCl (Zofran) 4 mg Q6H PRN IVP Nausea & Vomiting 04/06/20 21:15 05/06/20 21:14 Pantoprazole (Protonix) 40 mg EVERY 12 HOURS ORAL 04/07/20 21:00 05/07/20 20:59 04/08/20 08:31 Polyethylene Glycol (Miralax) 17 gm HSPRN PRN ORAL Constipation 04/06/20 21:15 05/06/20 21:14 Sodium Chloride 1,000 ml @ 75 mls/hr [id number] IVLG 04/07/20 12:30 05/06/20 12:29 04/08/20 00:53 Temazepam (Restoril) 15 mg HSPRN PRN ORAL Insomnia 04/06/20 21:15 04/13/20 21:14 Laboratory Tests 04/07/20 16:53: POC Whole Blood Glucose 234H 04/07/20 21:22: POC Whole Blood Glucose [Pending] 04/08/20 05:20: White Blood Count 4.1L, Red Blood Count 3.81L, Hemoglobin 12.5, Hematocrit 37.5 , Mean Corpuscular Volume 99, Mean Corpuscular Hemoglobin 32.8H, Mean Corpuscular Hemoglobin Concent 33.2, Red Cell Distribution Width 11.1L, Platelet Count 189, Mean Platelet Volume 9.0, Neutrophils (%) (Auto) 37.4L, Lymphocytes (%) (Auto) 50.3H, Monocytes (%) (Auto) 8.9, Eosinophils (%) (Auto) 1.6, Basophils (%) (Auto) 1.8, Sodium Level 139, Potassium Level 3.4L, Chloride Level 104, Carbon Dioxide Level 26, Anion Gap 9, Blood Urea Nitrogen 9, Creatinine 1.2, Estimat Glomerular Filtration Rate 55.8, Glucose Level 300H, Uric Acid 3.8, Calcium Level 8.5, Phosphorus Level 4.4, Magnesium Level 1.9, Iron Level 76, Total Iron Binding Capacity 176L, Percent Iron Saturation 43, Unsaturated Iron Binding 100L, Ferritin 292, Total Bilirubin 0.3, Gamma Glutamyl Transpeptidase 28, Aspartate Amino Transf (AST/SGOT) < 5L, Alanine Aminotransferase (ALT/SGPT) < 6L, Alkaline Phosphatase 90, Troponin I 0.014, C- Reactive Protein, Quantitative < 0.4, Pro-B-Type Natriuretic Peptide 1444H, Total Protein 6.1L, Albumin 3.1L, Globulin 3.0, Albumin/Globulin Ratio 1.0, Vitamin B12 Level 721, Folate 12.6 04/08/20 11:05: POC Whole Blood Glucose 263H Height (Feet): 5 Height (Inches): 6.00 Weight (Pounds): 190 General Appearance: no apparent distress Cardiovascular: normal rate Respiratory/Chest: decreased breath sounds Abdomen: soft Andrea Spear MD Apr 08, 2020 13:19
[2020-04-08 16:00] VITALS: BP 158/95
[2020-04-08 20:00] VITALS: BP 143/98
[2020-04-08] MEDS: Atorvastatin 20mg tab ORAL SCH (20:26)
--- NOTE | 2020-04-08 23:14 | CDS Physician Query ---
Clarification is required for compliance, coding accuracy, and to reflect severity of illness for this patient Dear Derrek Valenzuela M.D. . Date: 04/08/2020 Advanced Practice Registered Nurse/CDS Name: Darryn Mendieta "59-year-old very delightful female with past medical history significant for coronary artery disease status post stent placement x3, morbid obesity, chronic smoker with 1 pack smoking per day, history of asthma, hypertension, diabetes type 2, who presented to the emergency department complaining about epigastric pain associated with generalized weakness.." [ H&P Derrek Valenzuela M.D. 04/07/2020] ASSESSMENT:Uncontrolled diabetes, Hyponatremia, Acute kidney injury and chronic renal insufficiency. Hypertension, Morbid obesity, Asthma, Coronary artery disease status post PTCA with stent placement. Dyslipidemia with hypertriglyceridemia, Chronic smoker. Clinical Finding Show: 04/06 04/07 04/08 17:00 04:49 05:20 Creatinine 2.1 1.5 1.2 BUN 29 20 9 Medication: Sodium Chloride IV(04/06) Please Clarify the type of renal failure below: [ x] Acute Renal Failure w/ Tubular Necrosis [] Acute Renal Failure w/ Cortical Necrosis [] Acute Renal Failure w/ Medullary Necrosis [] Acute Renal Failure (unspecified) [] Other: Present on Admission: [x ] Yes [] No [] Clinically Undetermined Physician signature Date Please also document in your Progress Notes and/or Discharge Summary and indicate if the condition was present on admission. BOBBY
[2020-04-09] VITALS: BP 131/83
[2020-04-09 04:00] VITALS: BP 142/84
[2020-04-09] MEDS: NovoLOG Insulin Flexpen SUBQ SCH ×7 (06:18→20:25)
[2020-04-09 06:23] LABS: BASOPHILS % (AUTO) 4.2 % (0.0-2.0); HEMATOCRIT 39.6 % (37.0-47.0); HEMOGLOBIN 12.9 G/DL (12.0-16.0); LYMPHOCYTES % (AUTO) 33.5 % (20.0-45.0); MEAN CORPUSCULAR VOLUME 99 FL (80-99); MONOCYTES % (AUTO) 14.3 % (1.0-10.0); NEUTROPHILS % (AUTO) 46.1 % (45.0-75.0); PLATELET COUNT 204 K/UL (150-450); RED CELL DISTRIBUTION WIDTH 11.4 % (11.6-14.8); WHITE BLOOD COUNT 4.6 K/UL (4.8-10.8)
[2020-04-09 06:43] LABS: ANION GAP 10 mmol/L (5-15); BLOOD UREA NITROGEN 12 mg/dL (7-18); CALCIUM 9.1 MG/DL (8.5-10.1); CARBON DIOXIDE 26 MMOL/L (21-32); CHLORIDE 101 MMOL/L (98-107); CHOLESTEROL 316 MG/DL (< 200); CREATININE 1.3 MG/DL (0.55-1.30); HDL CHOLESTEROL 39 MG/DL (40-60); SODIUM 137 MMOL/L (136-145); TRIGLYCERIDES 399 MG/DL (30-150)
[2020-04-09 06:47] LABS: ALANINE AMINOTRANSFERASE 14 U/L (12-78); ALBUMIN 3.5 G/DL (3.4-5.0); ALKALINE PHOSPHATASE 99 U/L (46-116); ASPARTATE AMINO TRANSFERASE 18 U/L (15-37); BILIRUBIN,DIRECT < 0.1 MG/DL (0.0-0.3); BILIRUBIN,TOTAL 0.3 MG/DL (0.2-1.0); PHOSPHORUS 3.7 MG/DL (2.5-4.9)
--- NOTE | 2020-04-09 07:43 | Pulmonology Progress Note ---
Subjective ROS Limited/Unobtainable: No Allergies: Coded Allergies: PENICILLINS (Verified Allergy, Unknown, Itching, 05/12/18) Subjective afebrile, BS better denies cough, congestion SOB, CP creat trended down Objective Last 24 Hour Vital Signs Date Time Temp Pulse Resp B/P (MAP) Pulse Ox O2 Delivery O2 Flow Rate FiO2 04/09/20 04:00 98.3 78 18 142/84 (103) 98 04/09/20 00:00 98.8 87 20 131/83 (99) 96 04/08/20 20:18 Room Air 04/08/20 20:00 97.0 86 18 143/98 (113) 99 04/08/20 16:00 98.2 75 18 158/95 (116) 97 04/08/20 12:00 97.7 74 20 128/68 (88) 98 04/08/20 12:00 74 04/08/20 09:00 Room Air 04/08/20 08:31 73 138/73 04/08/20 08:00 101 04/08/20 07:53 97.9 73 18 138/73 (94) 99 Intake and Output 04/08/20 04/09/20 19:00 07:00 Intake Total 75 ml 1385 ml Balance 75 ml 1385 ml Intake Oral 560 ml IV Total 75 ml 825 ml # Voids 4 General Appearance: no acute distress, other - obese AA female in NAD HEENT: normocephalic, atraumatic, anicteric, mucous membranes moist, PERRL Respiratory: lungs clear, no accessory muscle use Cardiovascular: normal rate, regular rhythm - SR on tele , no JVD Abdomen: soft, non tender - obese Extremities: no edema Skin: rash Neurologic: no motor/sensory deficits, alert, oriented x 3, responsive Lymphatic: no neck adenopathy Musculoskeletal: normal muscle bulk Laboratory Tests 04/08/20 11:05: POC Whole Blood Glucose 263H 04/09/20 05:15: White Blood Count 4.6L, Red Blood Count 4.00L, Hemoglobin 12.9, Hematocrit 39.6 , Mean Corpuscular Volume 99, Mean Corpuscular Hemoglobin 32.2H, Mean Corpuscular Hemoglobin Concent 32.5, Red Cell Distribution Width 11.4L, Platelet Count 204, Mean Platelet Volume 9.5, Neutrophils (%) (Auto) 46.1, Lymphocytes (%) (Auto) 33.5, Monocytes (%) (Auto) 14.3H, Eosinophils (%) (Auto) 2.0, Basophils (%) (Auto) 4.2H, Sodium Level 137, Potassium Level 4.0, Chloride Level 101, Carbon Dioxide Level 26, Anion Gap 10, Blood Urea Nitrogen 12, Creatinine 1.3, Estimat Glomerular Filtration Rate 50.8, Glucose Level 403#H, Calcium Level 9.1, Phosphorus Level 3.7, Magnesium Level 2.0, Total Bilirubin 0.3, Direct Bilirubin < 0.1, Aspartate Amino Transf (AST/SGOT) 18, Alanine Aminotransferase (ALT/SGPT) 14, Alkaline Phosphatase 99, Total Protein 6.5, Albumin 3.5, Triglycerides Level 399H, Cholesterol Level 316H, LDL Cholesterol 196H, HDL Cholesterol 39L, Cholesterol/HDL Ratio 8.1H Current Medications Medications (Trade) Dose Ordered Sig/Stefan Route PRN Reason Start Time Stop Time Status Last Admin Dose Admin Acetaminophen (Tylenol) 650 mg Q4H PRN ORAL fever 04/06/20 21:15 05/06/20 21:14 04/08/20 11:48 Acetaminophen (Tylenol) 650 mg Q6H PRN ORAL Pain Scale (3-5) 04/07/20 20:15 05/07/20 20:14 Albuterol/ Ipratropium (Albuterol/ Ipratropium) 3 ml Q4H PRN HHN Shortness of Breath 04/06/20 21:15 04/11/20 21:14 Amlodipine Besylate (Norvasc) 5 mg DAILY ORAL 04/07/20 09:00 05/07/20 08:59 04/08/20 08:31 Aspirin (ASA) 81 mg DAILY ORAL 04/08/20 09:00 05/23/20 08:59 04/08/20 08:31 Atorvastatin Calcium (Lipitor) 40 mg BEDTIME ORAL 04/07/20 21:00 07/06/20 20:59 04/08/20 20:26 Clonidine HCl (Catapres Tab) 0.1 mg Q4H PRN ORAL sbp more than 160 04/06/20 21:15 07/05/20 21:14 Dextrose (Dextrose 50%) 25 ml Q30M PRN IV Hypoglycemia 04/07/20 08:45 10/8/20 08:44 Dextrose (Dextrose 50%) 50 ml Q30M PRN IV Hypoglycemia 04/07/20 08:45 07/06/20 08:44 Docusate Sodium (Colace) 100 mg THREE TIMES A DAY ORAL 04/07/20 13:00 05/07/20 12:59 04/08/20 17:12 Fish Oil (Fish Oil) 1,000 mg BID ORAL 04/07/20 18:00 05/07/20 17:59 04/08/20 17:12 Heparin Sodium (Porcine) (Heparin 5000 units/ml) 5,000 units EVERY 12 HOURS SUBQ 04/07/20 09:00 05/22/20 08:59 04/08/20 20:30 Insulin Aspart (NovoLOG) BEFORE MEALS AND HS SUBQ 04/07/20 11:30 07/06/20 11:29 04/09/20 06:19 Insulin Aspart (NovoLOG) 10 units NOVOTIAC SUBQ 04/07/20 11:50 07/06/20 11:49 04/09/20 06:18 Insulin Detemir (Levemir) 30 units DAILY SUBQ 04/07/20 09:00 07/06/20 08:59 04/08/20 08:32 Nitroglycerin (Ntg) 0.4 mg Q5M X 3 DOSES PRN SL Prn Chest Pain 04/06/20 21:15 05/06/20 21:14 Ondansetron HCl (Zofran) 4 mg Q6H PRN IVP Nausea & Vomiting 04/06/20 21:15 05/06/20 21:14 Pantoprazole (Protonix) 40 mg EVERY 12 HOURS ORAL 04/07/20 21:00 05/07/20 20:59 04/08/20 20:26 Polyethylene Glycol (Miralax) 17 gm HSPRN PRN ORAL Constipation 04/06/20 21:15 05/06/20 21:14 Potassium Chloride (K-Dur) 40 meq DAILY ORAL 04/09/20 09:00 07/08/20 08:59 Sodium Chloride 1,000 ml @ 75 mls/hr [id number] IVLG 04/07/20 12:30 05/06/20 12:29 04/09/20 05:33 Temazepam (Restoril) 15 mg HSPRN PRN ORAL Insomnia 04/06/20 21:15 04/13/20 21:14 Assessment/Plan Assessment/Plan ASSESSMENT Hyperosmolar syndrome Diabetes mellitus [id number] with hyperglycemia Acute kidney injury -resolved Asthma Morbid obesity CAD , status post PTCA with stent placement Dyslipidemia Smoker Hyponatremia Hypercholesteremia PLAN OF CARE MS floor O2 titrate to keep sat above 92 pulmonary toilet CXR-> no acute cardiopulmonary pathology BS management per endo recs with JACKELINE Calixto SA NovoLog AC and SSI diabetic diet, diabetic teaching Hgb A1c 9.8 -> clearly not at goal patient will need further optimization of BS as outpatient serial troponin x2 negative ECG no acute ischemic changes monitor renal parameters lytes correct electrolytes as needed DANAE resolved , creatinine down - continue home meds a/PLT therapy with ASA and statin DVT and GI prophylaxis BP management with CCB lipid panel noted on statin low fat low cholesterol diet , encourage compliance with meds as OP and diet rehabilitation counsellor on smoking cessation, declined Nicotine patch supportive care case discussed and evaluated by supervising physician Livia Tran NP Apr 09, 2020 07:43
[2020-04-09 08:00] VITALS: BP 123/75
[2020-04-09] MEDS: Aspirin Baby 81mg ORAL SCH (08:23)
[2020-04-09] MEDS: Levemir Flexpen SUBQ SCH (08:25)
[2020-04-09] MEDS: Heparin 5000 units/ml inj SUBQ SCH ×2 (08:26→20:26)
[2020-04-09] MEDS: Docusate 100mg cap ORAL SCH ×3 (09:00→17:14)
[2020-04-09 12:00] VITALS: BP 144/78
--- NOTE | 2020-04-09 13:35 | Nephrology Progress Note ---
Assessment/Plan Problem List: (1) DANAE (acute kidney injury) (2) Hyperosmolar syndrome (3) Uncontrolled diabetes mellitus (4) History of hypertension (5) Anemia Assessment Acute kidney injury. Presents with creatinine of 2.1, now WNL with Hydration Underlying dehydration due to hyperosmolar syndrome. Presents with blood sugar of 860 Severe hyperglycemia. Uncontrolled diabetes mellitus. Proteinuria Underlying anemia High lipid panel Hypertension Plan Increase Lipitor to 80 mg at night and increase fish oil to 2 g p.o. twice daily Hydrate as needed, potassium chloride supplement p.o. ordered Blood sugar control with insulin Keep the blood pressure in check Statins and fish oil Aspirin Protonix and Colace Continue per consultants Iron panel ferritin B12 and folate levels Per orders Subjective ROS Limited/Unobtainable: No Constitutional: Reports: malaise Objective Objective Last 24 Hour Vital Signs Date Time Temp Pulse Resp B/P (MAP) Pulse Ox O2 Delivery O2 Flow Rate FiO2 04/09/20 12:00 97.0 74 18 144/78 (100) 100 04/09/20 09:00 Room Air 04/09/20 08:23 81 123/75 04/09/20 08:00 97.7 81 17 123/75 (91) 100 04/09/20 04:00 98.3 78 18 142/84 (103) 98 04/09/20 00:00 98.8 87 20 131/83 (99) 96 04/08/20 20:18 Room Air 04/08/20 20:00 97.0 86 18 143/98 (113) 99 04/08/20 16:00 98.2 75 18 158/95 (116) 97 Intake and Output 04/08/20 04/09/20 19:00 07:00 Intake Total 75 ml 1385 ml Balance 75 ml 1385 ml Intake Oral 560 ml IV Total 75 ml 825 ml # Voids 4 Laboratory Tests 04/09/20 05:15: White Blood Count 4.6L, Red Blood Count 4.00L, Hemoglobin 12.9, Hematocrit 39.6 , Mean Corpuscular Volume 99, Mean Corpuscular Hemoglobin 32.2H, Mean Corpuscular Hemoglobin Concent 32.5, Red Cell Distribution Width 11.4L, Platelet Count 204, Mean Platelet Volume 9.5, Neutrophils (%) (Auto) 46.1, Lymphocytes (%) (Auto) 33.5, Monocytes (%) (Auto) 14.3H, Eosinophils (%) (Auto) 2.0, Basophils (%) (Auto) 4.2H, Sodium Level 137, Potassium Level 4.0, Chloride Level 101, Carbon Dioxide Level 26, Anion Gap 10, Blood Urea Nitrogen 12, Creatinine 1.3, Estimat Glomerular Filtration Rate 50.8, Glucose Level 403#H, Calcium Level 9.1, Phosphorus Level 3.7, Magnesium Level 2.0, Total Bilirubin 0.3, Direct Bilirubin < 0.1, Aspartate Amino Transf (AST/SGOT) 18, Alanine Aminotransferase (ALT/SGPT) 14, Alkaline Phosphatase 99, Total Protein 6.5, Albumin 3.5, Triglycerides Level 399H, Cholesterol Level 316H, LDL Cholesterol 196H, HDL Cholesterol 39L, Cholesterol/HDL Ratio 8.1H Height (Feet): 5 Height (Inches): 6.00 Weight (Pounds): 190 General Appearance: no apparent distress Cardiovascular: normal rate Respiratory/Chest: decreased breath sounds Abdomen: soft Objective No change Andrea Spear MD Apr 09, 2020 13:35
--- NOTE | 2020-04-09 14:25 | Internal Med Progress Note ---
Subjective Date of Service: Apr 09, 2020 Physician Name MaribethJeremy Attending Physician Derrek Valenzuela MD Current Medications Medications (Trade) Dose Ordered Sig/Stefan Route PRN Reason Start Time Stop Time Status Last Admin Dose Admin Acetaminophen (Tylenol) 650 mg Q4H PRN ORAL fever 04/06/20 21:15 05/06/20 21:14 04/08/20 11:48 Acetaminophen (Tylenol) 650 mg Q6H PRN ORAL Pain Scale (3-5) 04/07/20 20:15 05/07/20 20:14 04/09/20 11:49 Albuterol/ Ipratropium (Albuterol/ Ipratropium) 3 ml Q4H PRN HHN Shortness of Breath 04/06/20 21:15 04/11/20 21:14 Amlodipine Besylate (Norvasc) 5 mg DAILY ORAL 04/07/20 09:00 05/07/20 08:59 04/09/20 08:23 Aspirin (ASA) 81 mg DAILY ORAL 04/08/20 09:00 05/23/20 08:59 04/09/20 08:23 Atorvastatin Calcium (Lipitor) 80 mg BEDTIME ORAL 04/09/20 21:00 07/06/20 20:59 Clonidine HCl (Catapres Tab) 0.1 mg Q4H PRN ORAL sbp more than 160 04/06/20 21:15 07/05/20 21:14 Dextrose (Dextrose 50%) 25 ml Q30M PRN IV Hypoglycemia 04/07/20 08:45 07/06/20 08:44 Dextrose (Dextrose 50%) 50 ml Q30M PRN IV Hypoglycemia 04/07/20 08:45 07/06/20 08:44 Docusate Sodium (Colace) 100 mg THREE TIMES A DAY ORAL 04/07/20 13:00 05/07/20 12:59 04/08/20 17:12 Fish Oil (Fish Oil) 2,000 mg BID ORAL 04/09/20 18:00 05/07/20 17:59 Heparin Sodium (Porcine) (Heparin 5000 units/ml) 5,000 units EVERY 12 HOURS SUBQ 04/07/20 09:00 05/22/20 08:59 04/09/20 08:26 Insulin Aspart (NovoLOG) BEFORE MEALS AND HS SUBQ 04/07/20 11:30 07/06/20 11:29 04/09/20 12:00 Insulin Aspart (NovoLOG) 10 units NOVOTIAC SUBQ 04/07/20 11:50 07/06/20 11:49 04/09/20 12:01 Insulin Detemir (Levemir) 30 units DAILY SUBQ 04/07/20 09:00 07/06/20 08:59 04/09/20 08:25 Nitroglycerin (Ntg) 0.4 mg Q5M X 3 DOSES PRN SL Prn Chest Pain 04/06/20 21:15 05/06/20 21:14 Ondansetron HCl (Zofran) 4 mg Q6H PRN IVP Nausea & Vomiting 04/06/20 21:15 05/06/20 21:14 Pantoprazole (Protonix) 40 mg EVERY 12 HOURS ORAL 04/07/20 21:00 05/07/20 20:59 04/09/20 08:23 Polyethylene Glycol (Miralax) 17 gm HSPRN PRN ORAL Constipation 04/06/20 21:15 05/06/20 21:14 Potassium Chloride (K-Dur) 40 meq DAILY ORAL 04/09/20 09:00 07/08/20 08:59 04/09/20 08:22 Sodium Chloride 1,000 ml @ 75 mls/hr [id number] IVLG 04/07/20 12:30 05/06/20 12:29 04/09/20 05:33 Temazepam (Restoril) 15 mg HSPRN PRN ORAL Insomnia 04/06/20 21:15 04/13/20 21:14 Allergies: Coded Allergies: PENICILLINS (Verified Allergy, Unknown, Itching, 05/12/18) ROS Limited/Unobtainable: No Constitutional: Reports: no symptoms HEENT: Reports: no symptoms Cardiovascular: Reports: no symptoms Respiratory: Reports: no symptoms Gastrointestinal/Abdominal: Reports: no symptoms Genitourinary: Reports: no symptoms Neurologic/Psychiatric: Reports: no symptoms Subjective 59 YO F admitted with epigastric pain; now uncontrolled diabetes. Cover for Int Jese- Dr Valenzuela Objective Last Vital Signs Date Time Temp Pulse Resp B/P (MAP) Pulse Ox O2 Delivery O2 Flow Rate FiO2 04/09/20 12:00 97.0 74 18 144/78 (100) 100 04/09/20 09:00 Room Air Laboratory Tests Test 04/09/20 05:15 White Blood Count 4.6 K/UL (4.8-10.8) L Red Blood Count 4.00 M/UL (4.20-5.40) L Hemoglobin 12.9 G/DL (12.0-16.0) Hematocrit 39.6 % (37.0-47.0) Mean Corpuscular Volume 99 FL (80-99) Mean Corpuscular Hemoglobin 32.2 PG (27.0-31.0) H Mean Corpuscular Hemoglobin Concent 32.5 G/DL (32.0-36.0) Red Cell Distribution Width 11.4 % (11.6-14.8) L Platelet Count 204 K/UL (150-450) Mean Platelet Volume 9.5 FL (6.5-10.1) Neutrophils (%) (Auto) 46.1 % (45.0-75.0) Lymphocytes (%) (Auto) 33.5 % (20.0-45.0) Monocytes (%) (Auto) 14.3 % (1.0-10.0) H Eosinophils (%) (Auto) 2.0 % (0.0-3.0) Basophils (%) (Auto) 4.2 % (0.0-2.0) H Sodium Level 137 MMOL/L (136-145) Potassium Level 4.0 MMOL/L (3.5-5.1) Chloride Level 101 MMOL/L (98-107) Carbon Dioxide Level 26 MMOL/L (21-32) Anion Gap 10 mmol/L (5-15) Blood Urea Nitrogen 12 mg/dL (7-18) Creatinine 1.3 MG/DL (0.55-1.30) Estimat Glomerular Filtration Rate 50.8 mL/min (>60) Glucose Level 403 MG/DL (74-106) #H Calcium Level 9.1 MG/DL (8.5-10.1) Phosphorus Level 3.7 MG/DL (2.5-4.9) Magnesium Level 2.0 MG/DL (1.8-2.4) Total Bilirubin 0.3 MG/DL (0.2-1.0) Direct Bilirubin < 0.1 MG/DL (0.0-0.3) Aspartate Amino Transf (AST/SGOT) 18 U/L (15-37) Alanine Aminotransferase (ALT/SGPT) 14 U/L (12-78) Alkaline Phosphatase 99 U/L (46-116) Total Protein 6.5 G/DL (6.4-8.2) Albumin 3.5 G/DL (3.4-5.0) Triglycerides Level 399 MG/DL (30-150) H Cholesterol Level 316 MG/DL (< 200) H LDL Cholesterol 196 mg/dL (<100) H HDL Cholesterol 39 MG/DL (40-60) L Cholesterol/HDL Ratio 8.1 (3.3-4.4) H Intake and Output 04/08/20 04/09/20 19:00 07:00 Intake Total 75 ml 1385 ml Balance 75 ml 1385 ml Intake Oral 560 ml IV Total 75 ml 825 ml # Voids 4 Objective PHYSICAL EXAMINATION: GENERAL: The patient is awake and responsive, in no acute distress. HEAD AND NECK: Pupils are reactive to light. Extraocular movements intact. Neck was supple. No JVD. LUNGS: Good air entry. No wheezing or rales. HEART: S1, S2. Regular rhythm. No murmur or gallops. ABDOMEN: Soft, nondistended, and nontender. No rebound tenderness. No fluid shift. Morbidly obese. EXTREMITIES: No cyanosis, clubbing, or edema. NEUROLOGIC: Cranial nerves II through to XII grossly intact. Motor is 5/5 in all extremities. Gait is intact. RECTAL/: Refused and deferred. PSYCHIATRIC: Mood and affect is intact. Assessment/Plan Assessment/Plan ASSESSMENT: 1. Uncontrolled diabetes. 2. Hyponatremia. 3. Acute kidney injury and chronic renal insufficiency. 4. Hypertension. 5. Morbid obesity. 6. Asthma. 7. Coronary artery disease status post PTCA with stent placement. 8. Dyslipidemia with hypertriglyceridemia. 9. Chronic smoker. PLAN: 1. Med/Surg 2. Dr. Jevon Sidhu = Endocrine consultation 3. Dr. Hendricks=Pulmonary Critical Care 4. Dr. Andrea Spear = Nephrology 6. Continue levemir and Novolog insulin sliding scale per endocrinology 7. DVT prophylaxis= heparin subcutaneous. 8. Code status, Full Code. Jeremy Stahl MD Apr 09, 2020 14:25
[2020-04-09 16:00] VITALS: BP 130/81
[2020-04-09 20:00] VITALS: BP 142/79
[2020-04-09] MEDS ORDERED: Atorvastatin 80mg tab ORAL SCH (21:00)
[2020-04-10] VITALS: BP 144/106
[2020-04-10 04:31] VITALS: BP 152/97
[2020-04-10] MEDS: NovoLOG Insulin Flexpen SUBQ SCH ×3 (06:08→12:12)
--- NOTE | 2020-04-10 06:43 | General Progress Note ---
Assessment/Plan Problem List: (1) Uncontrolled diabetes mellitus ICD Codes: E11.65 - Type 2 diabetes mellitus with hyperglycemia SNOMED: 18082629, 532394055 (2) DANAE (acute kidney injury) ICD Codes: N17.9 - Acute kidney failure, unspecified SNOMED: 80004100, 6366422 Assessment/Plan: increase Levemir 30 to 40 units daily increase Novolog 10 to 14 units ac tid continue Novolog sliding scale ac / hs hypoglycemia protocol in order Subjective ROS Limited/Unobtainable: Yes Allergies: Coded Allergies: PENICILLINS (Verified Allergy, Unknown, Itching, 05/12/18) Subjective events noted glucose values on higher side Item Value Date Time Bedside Blood Glucose 361 mg/dl H 04/10/20 0611 Bedside Blood Glucose 222 mg/dl H 04/09/20 2029 Bedside Blood Glucose 251 mg/dl H 04/09/20 1703 Bedside Blood Glucose 285 mg/dl H 04/09/20 1201 Bedside Blood Glucose 298 mg/dl H 04/09/20 0825 Bedside Blood Glucose 394 mg/dl H 04/09/20 0631 Objective Last 24 Hour Vital Signs Date Time Temp Pulse Resp B/P (MAP) Pulse Ox O2 Delivery O2 Flow Rate FiO2 04/10/20 04:31 98.1 78 20 152/97 (115) 98 04/10/20 00:00 97.9 85 20 144/106 (119) 97 04/09/20 21:00 Room Air 04/09/20 20:00 99.7 82 18 142/79 (100) 99 04/09/20 19:33 75 18 99 Room Air 21 04/09/20 16:00 98.0 72 19 130/81 (97) 100 04/09/20 12:00 97.0 74 18 144/78 (100) 100 04/09/20 09:00 Room Air 04/09/20 08:23 81 123/75 04/09/20 08:00 97.7 81 17 123/75 (91) 100 Intake and Output 04/09/20 04/10/20 19:00 07:00 Intake Total 2100 ml 825 ml Balance 2100 ml 825 ml IV Total 900 ml 825 ml Other 1200 ml Laboratory Tests 04/10/20 06:15: White Blood Count [Pending], Red Blood Count [Pending], Hemoglobin [Pending], Hematocrit [Pending], Mean Corpuscular Volume [Pending], Mean Corpuscular Hemoglobin [Pending], Mean Corpuscular Hemoglobin Concent [Pending], Red Cell Distribution Width [Pending], Platelet Count [Pending], Mean Platelet Volume [ Pending], Neutrophils (%) (Auto) [Pending], Lymphocytes (%) (Auto) [Pending], Monocytes (%) (Auto) [Pending], Eosinophils (%) (Auto) [Pending], Basophils (%) (Auto) [Pending], Sodium Level [Pending], Potassium Level [Pending], Chloride Level [Pending], Carbon Dioxide Level [Pending], Blood Urea Nitrogen [Pending], Creatinine [Pending], Estimat Glomerular Filtration Rate [Pending], Glucose Level [Pending], Calcium Level [Pending] Height (Feet): 5 Height (Inches): 6.00 Weight (Pounds): 190 General Appearance: no apparent distress Neck: normal alignment Cardiovascular: normal rate Respiratory/Chest: lungs clear Abdomen: normal bowel sounds Pelvis: normal external exam Objective Current Medications Medications (Trade) Dose Ordered Sig/Stefan Route PRN Reason Start Time Stop Time Status Last Admin Dose Admin Acetaminophen (Tylenol) 650 mg Q4H PRN ORAL fever 04/06/20 21:15 05/06/20 21:14 04/08/20 11:48 Acetaminophen (Tylenol) 650 mg Q6H PRN ORAL Pain Scale (3-5) 04/07/20 20:15 05/07/20 20:14 04/09/20 11:49 Albuterol/ Ipratropium (Albuterol/ Ipratropium) 3 ml Q4H PRN HHN Shortness of Breath 04/06/20 21:15 04/11/20 21:14 Amlodipine Besylate (Norvasc) 5 mg DAILY ORAL 04/07/20 09:00 05/07/20 08:59 04/09/20 08:23 Aspirin (ASA) 81 mg DAILY ORAL 04/08/20 09:00 05/23/20 08:59 04/09/20 08:23 Atorvastatin Calcium (Lipitor) 80 mg BEDTIME ORAL 04/09/20 21:00 07/06/20 20:59 04/09/20 20:24 Clonidine HCl (Catapres Tab) 0.1 mg Q4H PRN ORAL sbp more than 160 04/06/20 21:15 07/05/20 21:14 Dextrose (Dextrose 50%) 25 ml Q30M PRN IV Hypoglycemia 04/07/20 08:45 07/06/20 08:44 Dextrose (Dextrose 50%) 50 ml Q30M PRN IV Hypoglycemia 04/07/20 08:45 07/06/20 08:44 Docusate Sodium (Colace) 100 mg THREE TIMES A DAY ORAL 04/07/20 13:00 05/07/20 12:59 04/09/20 17:14 Fish Oil (Fish Oil) 2,000 mg BID ORAL 04/09/20 18:00 05/07/20 17:59 04/09/20 17:14 Heparin Sodium (Porcine) (Heparin 5000 units/ml) 5,000 units EVERY 12 HOURS SUBQ 04/07/20 09:00 05/22/20 08:59 04/09/20 20:26 Insulin Aspart (NovoLOG) BEFORE MEALS AND HS SUBQ 04/07/20 11:30 07/06/20 11:29 04/10/20 06:08 Insulin Aspart (NovoLOG) 10 units NOVOTIAC SUBQ 04/07/20 11:50 07/06/20 11:49 04/10/20 06:08 Insulin Detemir (Levemir) 30 units DAILY SUBQ 04/07/20 09:00 07/06/20 08:59 04/09/20 08:25 Nitroglycerin (Ntg) 0.4 mg Q5M X 3 DOSES PRN SL Prn Chest Pain 04/06/20 21:15 05/06/20 21:14 Ondansetron HCl (Zofran) 4 mg Q6H PRN IVP Nausea & Vomiting 04/06/20 21:15 05/06/20 21:14 Pantoprazole (Protonix) 40 mg EVERY 12 HOURS ORAL 04/07/20 21:00 05/07/20 20:59 04/09/20 20:24 Polyethylene Glycol (Miralax) 17 gm HSPRN PRN ORAL Constipation 04/06/20 21:15 05/06/20 21:14 Potassium Chloride (K-Dur) 40 meq DAILY ORAL 7/12/20 09:00 07/08/20 08:59 04/09/20 08:22 Sodium Chloride 1,000 ml @ 75 mls/hr [id number] IVLG 04/07/20 12:30 05/06/20 12:29 04/10/20 06:09 Temazepam (Restoril) 15 mg HSPRN PRN ORAL Insomnia 04/06/20 21:15 04/13/20 21:14 Jevon Sidhu MD Apr 10, 2020 06:43
[2020-04-10 07:26] LABS: ANION GAP 10 mmol/L (5-15); BLOOD UREA NITROGEN 12 mg/dL (7-18); CALCIUM 9.3 MG/DL (8.5-10.1); CARBON DIOXIDE 24 MMOL/L (21-32); CHLORIDE 101 MMOL/L (98-107); CREATININE 1.2 MG/DL (0.55-1.30); POTASSIUM 4.2 MMOL/L (3.5-5.1); SODIUM 135 MMOL/L (136-145)
[2020-04-10 07:33] LABS: HEMATOCRIT 38.6 % (37.0-47.0); HEMOGLOBIN 12.4 G/DL (12.0-16.0); MEAN CORPUSCULAR VOLUME 99 FL (80-99); PLATELET COUNT 194 K/UL (150-450); RED BLOOD COUNT 3.91 M/UL (4.20-5.40); RED CELL DISTRIBUTION WIDTH 11.5 % (11.6-14.8); WHITE BLOOD COUNT 4.7 K/UL (4.8-10.8)
[2020-04-10 08:00] VITALS: BP 142/88
[2020-04-10] MEDS ORDERED: Levemir Flexpen SUBQ SCH (09:00)
[2020-04-10] MEDS: Docusate 100mg cap ORAL SCH ×2 (09:00→12:13)
--- NOTE | 2020-04-10 09:15 | Geriatric Medicine Prog Note ---
DATE: 04/08/[address] Jevon Sidhu. SUBJECTIVE: The patient has good diabetic control. OBJECTIVE: VITAL SIGNS: Blood pressure 142/98, pulse 86, respiratory rate 18, temperature . LUNGS: Clear. CARDIOVASCULAR: Regular rate. . IMPRESSION: good control. PLAN: Continue NovoLog 10 units t.i.dJosemanuel a.cJosemanuel Norman Parker M.D. DR: CORRINE JOB#: [id number] CC:
--- NOTE | 2020-04-10 09:26 | Nephrology Progress Note ---
Assessment/Plan Problem List: (1) DANAE (acute kidney injury) (2) Hyperosmolar syndrome (3) Uncontrolled diabetes mellitus (4) History of hypertension (5) Anemia Assessment Acute kidney injury. Presents with creatinine of 2.1, now WNL with Hydration Underlying dehydration due to hyperosmolar syndrome. Presents with blood sugar of 860 Severe hyperglycemia. Uncontrolled diabetes mellitus. Proteinuria Underlying anemia High lipid panel Hypertension Plan Lab reviewed stable from renal standpoint of view Increase Lipitor to 80 mg at night and increase fish oil to 2 g p.o. twice daily Hydrate as needed, potassium chloride supplement p.o. ordered Blood sugar control with insulin Keep the blood pressure in check Aspirin Protonix and Colace Continue per consultants Iron panel ferritin B12 and folate levels Per orders Subjective ROS Limited/Unobtainable: No Objective Objective Last 24 Hour Vital Signs Date Time Temp Pulse Resp B/P (MAP) Pulse Ox O2 Delivery O2 Flow Rate FiO2 04/10/20 04:31 98.1 78 20 152/97 (115) 98 04/10/20 00:00 97.9 85 20 144/106 (119) 97 04/09/20 21:00 Room Air 04/09/20 20:00 99.7 82 18 142/79 (100) 99 04/09/20 19:33 75 18 99 Room Air 21 04/09/20 16:00 98.0 72 19 130/81 (97) 100 04/09/20 12:00 97.0 74 18 144/78 (100) 100 Intake and Output 04/09/20 04/10/20 19:00 07:00 Intake Total 2100 ml 1625 ml Balance 2100 ml 1625 ml IV Total 900 ml 825 ml Other 1200 ml 800 ml # Voids 3 Laboratory Tests 04/10/20 06:15: White Blood Count 4.7L, Red Blood Count 3.91L, Hemoglobin 12.4, Hematocrit 38.6 , Mean Corpuscular Volume 99, Mean Corpuscular Hemoglobin 31.6H, Mean Corpuscular Hemoglobin Concent 32.0, Red Cell Distribution Width 11.5L, Platelet Count 194, Mean Platelet Volume 10.8H, Neutrophils (%) (Auto) , Lymphocytes (%) (Auto) , Monocytes (%) (Auto) , Eosinophils (%) (Auto) , Basophils (%) (Auto) , Neutrophils % (Manual) [Pending], Lymphocytes % (Manual) [Pending], Platelet Estimate [Pending], Platelet Morphology [Pending], Sodium Level 135L, Potassium Level 4.2, Chloride Level 101, Carbon Dioxide Level 24, Anion Gap 10, Blood Urea Nitrogen 12, Creatinine 1.2, Estimat Glomerular Filtration Rate 55.8, Glucose Level 377H, Calcium Level 9.3 Height (Feet): 5 Height (Inches): 6.00 Weight (Pounds): 190 General Appearance: no apparent distress Objective No change Andrea Spear MD Apr 10, 2020 09:26
[2020-04-10] MEDS: Heparin 5000 units/ml inj SUBQ SCH (10:14)
[2020-04-10] MEDS: Aspirin Baby 81mg ORAL SCH (10:17)
[2020-04-10] MEDS ORDERED: NovoLOG Insulin Flexpen SUBQ SCH (11:50)
[2020-04-10 12:00] VITALS: BP 152/95
[2020-04-10] MEDS ORDERED: LEVEMIR FL100 UNIT/1 SUBQ (12:59)
[2020-04-10] MEDS ORDERED: NOVOLOG100 UNITS1 SUBQ ×2 (13:03→13:08)
--- NOTE | 2020-04-10 13:39 | Pulmonology Progress Note ---
Subjective ROS Limited/Unobtainable: No Allergies: Coded Allergies: PENICILLINS (Verified Allergy, Unknown, Itching, 05/12/18) Objective Last 24 Hour Vital Signs Date Time Temp Pulse Resp B/P (MAP) Pulse Ox O2 Delivery O2 Flow Rate FiO2 04/10/20 12:00 97.2 78 20 152/95 (114) 100 04/10/20 10:16 81 142/88 04/10/20 08:00 98.4 81 20 142/88 (106) 98 04/10/20 04:31 98.1 78 20 152/97 (115) 98 04/10/20 00:00 97.9 85 20 144/106 (119) 97 04/09/20 21:00 Room Air 04/09/20 20:00 99.7 82 18 142/79 (100) 99 04/09/20 19:33 75 18 99 Room Air 21 04/09/20 16:00 98.0 72 19 130/81 (97) 100 Intake and Output 04/09/20 04/10/20 19:00 07:00 Intake Total 2100 ml 1625 ml Balance 2100 ml 1625 ml IV Total 900 ml 825 ml Other 1200 ml 800 ml # Voids 3 General Appearance: no acute distress, other - obese AA female in NAD HEENT: normocephalic, atraumatic, anicteric, mucous membranes moist, PERRL Respiratory: lungs clear, no accessory muscle use Cardiovascular: normal rate, regular rhythm - SR on tele , no JVD Abdomen: soft, non tender - obese Extremities: no cyanosis, no edema Skin: rash Neurologic: no motor/sensory deficits, alert, oriented x 3, responsive Lymphatic: no neck adenopathy Musculoskeletal: normal muscle bulk Laboratory Tests 04/10/20 06:15: White Blood Count 4.7L, Red Blood Count 3.91L, Hemoglobin 12.4, Hematocrit 38.6 , Mean Corpuscular Volume 99, Mean Corpuscular Hemoglobin 31.6H, Mean Corpuscular Hemoglobin Concent 32.0, Red Cell Distribution Width 11.5L, Platelet Count 194, Mean Platelet Volume 10.8H, Neutrophils (%) (Auto) , Lymphocytes (%) (Auto) , Monocytes (%) (Auto) , Eosinophils (%) (Auto) , Basophils (%) (Auto) , Differential Total Cells Counted 100, Neutrophils % ( Manual) 52, Lymphocytes % (Manual) 39, Monocytes % (Manual) 5, Eosinophils % ( Manual) 4H, Basophils % (Manual) 0, Band Neutrophils 0, Platelet Estimate Adequate, Platelet Morphology Normal, Macrocytosis 1+, Sodium Level 135L, Potassium Level 4.2, Chloride Level 101, Carbon Dioxide Level 24, Anion Gap 10, Blood Urea Nitrogen 12, Creatinine 1.2, Estimat Glomerular Filtration Rate 55.8 , Glucose Level 377H, Calcium Level 9.3 Current Medications Medications (Trade) Dose Ordered Sig/Stefan Route PRN Reason Start Time Stop Time Status Last Admin Dose Admin Acetaminophen (Tylenol) 650 mg Q4H PRN ORAL fever 04/06/20 21:15 05/06/20 21:14 04/08/20 11:48 Acetaminophen (Tylenol) 650 mg Q6H PRN ORAL Pain Scale (3-5) 04/07/20 20:15 05/07/20 20:14 04/10/20 10:21 Albuterol/ Ipratropium (Albuterol/ Ipratropium) 3 ml Q4H PRN HHN Shortness of Breath 04/06/20 21:15 04/11/20 21:14 Amlodipine Besylate (Norvasc) 5 mg DAILY ORAL 04/07/20 09:00 05/07/20 08:59 04/10/20 10:16 Aspirin (ASA) 81 mg DAILY ORAL 04/08/20 09:00 05/23/20 08:59 04/10/20 10:17 Atorvastatin Calcium (Lipitor) 80 mg BEDTIME ORAL 04/09/20 21:00 07/06/20 20:59 04/09/20 20:24 Clonidine HCl (Catapres Tab) 0.1 mg Q4H PRN ORAL sbp more than 160 04/06/20 21:15 07/05/20 21:14 Dextrose (Dextrose 50%) 25 ml Q30M PRN IV Hypoglycemia 04/07/20 08:45 07/06/20 08:44 Dextrose (Dextrose 50%) 50 ml Q30M PRN IV Hypoglycemia 04/07/20 08:45 07/06/20 08:44 Docusate Sodium (Colace) 100 mg THREE TIMES A DAY ORAL 04/07/20 13:00 05/07/20 12:59 04/09/20 17:14 Fish Oil (Fish Oil) 2,000 mg BID ORAL 04/09/20 18:00 05/07/20 17:59 04/10/20 10:16 Heparin Sodium (Porcine) (Heparin 5000 units/ml) 5,000 units EVERY 12 HOURS SUBQ 04/07/20 09:00 05/22/20 08:59 04/10/20 10:14 Insulin Aspart (NovoLOG) BEFORE MEALS AND HS SUBQ 04/07/20 11:30 07/06/20 11:29 04/10/20 12:12 Insulin Aspart (NovoLOG) 14 units NOVOTIAC SUBQ 04/10/20 11:50 07/06/20 11:49 04/10/20 12:13 Insulin Detemir (Levemir) 40 units DAILY SUBQ 04/10/20 09:00 07/06/20 08:59 04/10/20 10:13 Nitroglycerin (Ntg) 0.4 mg Q5M X 3 DOSES PRN SL Prn Chest Pain 04/06/20 21:15 05/06/20 21:14 Ondansetron HCl (Zofran) 4 mg Q6H PRN IVP Nausea & Vomiting 04/06/20 21:15 05/06/20 21:14 Pantoprazole (Protonix) 40 mg EVERY 12 HOURS ORAL 04/07/20 21:00 05/07/20 20:59 04/10/20 10:16 Polyethylene Glycol (Miralax) 17 gm HSPRN PRN ORAL Constipation 04/06/20 21:15 05/06/20 21:14 Potassium Chloride (K-Dur) 40 meq DAILY ORAL 04/09/20 09:00 07/08/20 08:59 04/10/20 10:17 Sodium Chloride 1,000 ml @ 75 mls/hr [id number] IVLG 04/07/20 12:30 05/06/20 12:29 04/10/20 06:09 Temazepam (Restoril) 15 mg HSPRN PRN ORAL Insomnia 04/06/20 21:15 04/13/20 21:14 Assessment/Plan Problems: (1) Hyperosmolar syndrome (2) Uncontrolled diabetes mellitus (3) DANAE (acute kidney injury) (4) Epigastric pain (5) Poor compliance (6) History of hypertension (7) Morbid obesity (8) History of diabetes mellitus Assessment/Plan improving BS is in the range of 300 Bp better iv hydration sliding scale renal follow up symptomatic treatment check electrolytes Peterson Hendricks MD Apr 10, 2020 13:39
--- NOTE | 2020-04-11 12:10 | Discharge Summary ---
Discharge Summary Discharge Summary _ DATE OF ADMISSION: 04/06/2020 DATE OF DISCHARGE: [] 04/10/2020 DISCHARGED BY: Dr. franklin REASON FOR ADMISSION: 59 years old female with past medical history of coronary artery disease, status post stent placement x3, morbid obesity, chronic smoker with 1 pack a day , asthma, hypertension, diabetes mellitus type 2, presented to emergency department complaining of epigastric pain associated with a generalized weakness. She was unable to eat due to pain . Patient also stopped taking insulin. Upon evaluation blood sugar was 860. Vital signs were stable. Laboratory work-up revealed no leukocytosis ,stable hemoglobin, hematocrit and platelet count. Urinalysis revealed +1 protein, +4 glucose ,+3 ketones, no evidence of urinary tract infection. Sodium 127, potassium 4.9. Anion gap 17. BUN 29, creatinine 2.1. Troponin negative . EKG revealed sinus rhythm , no acute ischemic changes. Urine toxicology screen was positive for marijuana. Chest x-ray revealed no acute cardiopulmonary pathology. Patient admitted for h hyperglycemia , uncontrolled diabetes mellitus, hyponatremia and acute kidney injury CONSULTANTS: pulmonary Dr. Hendricks associate professor of criminal justice Dr. Sidhu tool analyst Dr. Spear [facility] COURSE: Patient admitted and started on IV hydration. Blood sugar was managed as per associate professor of criminal justice recommendations with long-acting Levemir, short acting NovoLog pre-meals and sliding scale of insulin as needed. Hemoglobin A1c 9.8, clearly not at goal. Patient provided with diabetic diet. Patient will need further optimization of blood sugar as outpatient. Serial troponin x2 were negative. EKG revealed no acute ischemic changes. Antiplatelet therapy with aspirin and statin continued. Blood pressure was managed with calcium channel kori. Lipid panel revealed triglycerides 399, total cholesterol 316 and LDL 196. Patient was educated on low-fat low-cholesterol diet. Diabetic teaching provided. Supplemental oxygen provided and titrated to keep pulse oximetry above 92%. Pulmonary toilet was on board as needed . Chest x-ray revealed no acute cardiopulmonary pathology. Patient declined nicotine patch. Patient was counseled on smoking cessation. Renal parameters and electrolytes were closely monitored , electrolytes corrected as needed. Acute kidney injury resolved. Creatinine down to normal. Prior to discharge creatinine 1.2 , sodium 135. Home medication continued. DVT and GI prophylaxis provided. Patient was encouraged on compliance with medication and diet as outpatient . Supportive care provided. Patient clinically stabilized and was ready for discharge home. FINAL DIAGNOSES: Hyperosmolar syndrome Diabetes [id number] with hyperglycemia Hyponatremia - resolved Acute kidney injury-resolved Hypertension Morbid obesity Asthma Coronary artery disease , status post PTCA with stent placement x3 Mixed hyperlipidemia Chronic smoker DISCHARGE MEDICATIONS: See Medication Reconciliation list. DISCHARGE INSTRUCTIONS: Patient was discharged home. Follow-up with a primary care provider in 1 week. I have been assigned to dictate discharge summary for this account. Livia Tran NP Apr 11, 2020 12:10
== END 2020-04-10 16:19 | disposition home or self-care (01) | DRG 637 ==
LOC: EMR 16:50 → 2E 18:29 → EDBEDREQ 20:56 → 4E 04-08 15:00
DX: E11.00 Type 2 diabetes mellitus with hyperosmolarity without nonketotic hyperglycemic-hyperosmolar coma (NKHHC) (principal); N17.0 Acute kidney failure with tubular necrosis; E87.1 Hypo-osmolality and hyponatremia; E11.65 Type 2 diabetes mellitus with hyperglycemia; E66.9 Obesity, unspecified; Z68.30 Body mass index [BMI] 30.0-30.9, adult; J45.909 Unspecified asthma, uncomplicated; I25.10 Atherosclerotic heart disease of native coronary artery without angina pectoris; E86.0 Dehydration; Z88.0 Allergy status to penicillin; Z95.5 Presence of coronary angioplasty implant and graft; F17.200 Nicotine dependence, unspecified, uncomplicated; E66.01 Morbid (severe) obesity due to excess calories; E78.2 Mixed hyperlipidemia
CPT/HCPCS: 36415; 71045; 80048; 80053; 80061; 80076; 80307; 81003; 82009; 82607; 82728; 82746; 82962; 82977; 83036; 83540; 83550; 83735; 83880; 84100; 84443; 84484; 84550; 85007; 85025; 86140; 93005; 94664; 96361; 96372; 96374; 99291; J1815; J7030; J8499; S5561